=== PATIENT | female | born 1995 | race Caucasian/White ===

== ENCOUNTER 2021-03-11 23:40 | Inpatient (IN) | payer MEDICAID, SELFPAY ==
[2021-03-11 23:41] VITALS: BP 106/90; PULSE 92; RESP 16; TEMP 36.1; O2SAT 96; BMI 29.2
[2021-03-11 23:58] VITALS: BP 122/76; PULSE 76; RESP 16; O2SAT 97
[2021-03-12] VITALS (7 sets, daily range): BP systolic 103–128; BP diastolic 52–76; PULSE 55–76; RESP 16–20; TEMP 36.1–37.2; O2SAT 96–100; BMI 30.4
[2021-03-12 00:28] LABS: Absolute Lymphocyte Count 2.88 X10^3/uL (0.83-4.51); Absolute Neutrophil Count 4.9 X10^3/uL (2.0-7.7); Basophil# 0.09 X10^3/uL; Eosinophil# 0.12 X10^3/uL; Eosinophils% 1.4 % (0-5); Hematocrit 43.8 % (37-47); Hemoglobin 15.1 g/dL (12.0-15.0); Lymphocyte # 2.88 X10^3/ul (0.83-4.51); Lymphocyte % 32.9 % (19-41); Mean Corp Hgb Conc 34.5 g/dL (32-36); Mean Corpuscular Hgb 29.4 pg (27.0-32.0); Mean Corpuscular Volume 85.2 fL (81-99); Mean Platelet Vol. 9.8 fl (6.2-12.0); Monocyte# 0.74 X10^3/uL; Monocyte% 8.4 % (0-10); NRBC Flagged by Analyzer 0 % (0-5); Neutrophil # 4.91 X10^3/uL (2.7-7.7); Neutrophil % 56.1 % (47-70); Platelet Count 258 K/mm3 (150-450); RBC Distribution Width CV 12.4 % (11.6-14.6); RBC Distribution Width SD 38.6 fl (35.1-43.9); Red Blood Count 5.14 M/mm3 (4.2-5.4); White Blood Count 8.8 K/mm3 (4.4-11.0)
--- NOTE | 2021-03-12 00:32 | PCM.HP.STD ---
HPI - General General Date of Admission: 03/12/21 Date of Service: 03/12/21 HPI Narrative The patient is a 25 y/o F w/ PMHx: Chronic asthma, ADHD/Bipolar disorder/PTSD, EtOH Abuse and BZD abuse (6-12, 12 beers daily and pint whiskey/vodka daily in addition to BZD 2-12 pills daily unclear type), Polysubstance abuse (Hx IV heroin, clean x 3 years) w/ hepatitis C on chronic subutex therapy, Tobacco use who presents to the [facility] on 03/12/21 w/ noted acute impending BZD and EtOH withdrawal, onset starting prior to presentation following last EtOH intake 1 beer prior to arrival with restlessness, mild agitation, mild nausea. She notes usually will start to also have tremors. Patient interested in attaining sober status. 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 Work-up in the ED included T 96.9, heart rate 92, BP 106/90, respiratory rate 16, 96% on room air, CBC with WC 8.8, hemoglobin 15.1, platelet 258 without marked shift, CMP with potassium 3.2, chloride 108, otherwise unremarkable, serum negative, UDS with positive methamphetamine, positive benzodiazepines, positive cannabis, ethyl alcohol 42. [facility] Medical History ADHD Alcohol abuse Asthma Benzodiazepine abuse Manic bipolar I disorder PTSD (post-traumatic stress disorder) Substance abuse Tobacco use Home Medications buprenorphine HCl [Subutex] 8 mg SUBLINGUAL BID 03/11/21 [History Last Taken Unknown] dextroamphetamine-amphetamine [Adderall] 20 mg PO BID 03/11/21 [History Last Taken Unknown] lamotrigine 150 mg PO DAILY 03/11/21 [History Last Taken Unknown] medroxyprogesterone [Depo-Provera] 300 mg IM QMONTH 03/11/21 [History Last Taken Unknown] trazodone 100 mg PO QHS 03/11/21 [History Last Taken Unknown] Allergy/AdvReac Type Severity Reaction Status Date / Time No Known Allergies Allergy Verified 03/11/21 23:44 Family History (Updated 03/12/21 @ 02:[address] Charlotte Lorenzo MD) Father Heroin abuse other (Patient does not know her maternal family hx, states she gave her up at .) Surgical History (Updated 03/12/21 @ 02:[address] Charlotte Lorenzo MD) S/P tonsillectomy and adenoidectomy Social History (Updated 03/12/21 @ 02:[address] Charlotte Lorenzo MD) household members: significant other Smoking Status: Current every day smoker tobacco type: cigarettes Smoking packs per day: 1 Smoking cigarettes per day: 20.0 alcohol intake: current alcohol intake frequency: 3 or more drinks per day Alcohol type: beer and hard liquor details: 6-12 beers daily, 1 pint hard liqour daily. substance use type: former substance user Date of last use: Former heroin IV usage, on rx subutex. ROS ROS Narrative Admission Review of Systems: CONSTITUTIONAL: No weight loss, fever, chills, + weakness or fatigue. HEENT: Eyes: No visual loss, blurred vision, double vision or yellow sclerae. Ears, Nose, Throat: No hearing loss, sneezing, congestion, runny nose or sore throat. SKIN: No rash or itching, lesions, wounds. CARDIOVASCULAR: No chest pain, chest pressure or chest discomfort, palpitations, edema, orthopnea, syncopal events. RESPIRATORY: No shortness of breath, cough or sputum, wheezing, hemoptysis. GASTROINTESTINAL: No anorexia, nausea, vomiting or diarrhea, abdominal pain, melena, BRBPR. GENITOURINARY: No dysuria, frequency, urgency or retention. NEUROLOGICAL: + Restlessness, agitation. No headache, dizziness, syncope, paralysis, ataxia, numbness or tingling in the extremities, focal weakness, change in bowel or bladder control, seizure. MUSCULOSKELETAL: + muscle, back pain, joint pain or stiffness. HEMATOLOGIC: No anemia, bleeding or bruising. LYMPHATICS: No enlarged nodes. No history of splenectomy. PSYCHIATRIC: + history of depression or anxiety. ENDOCRINOLOGIC: No reports of sweating, cold or heat intolerance. No polyuria or polydipsia. ALLERGIES: + history of asthma, hives, eczema or rhinitis. Vital Signs Vital Signs Vital Signs: 03/11/21 23:41 03/11/21 23:58 Temperature 96.9 F L Temperature Source Temporal Pulse Rate 92 76 Respiratory Rate 16 16 Blood Pressure 106/90 H 122/76 H Blood Pressure Mean 95 91 Blood Pressure Source Monitor Blood Pressure Position Semi-Fowlers Blood Pressure Location Right Arm Pulse Ox 96 97 Oxygen Delivery Method Room Air Room Air Weight Weight: 170 lb Body Mass Index (BMI) 29.2 Physical Exam Narrative Physical Examination: General: Awake, alert, oriented x 3 and cooperative, seated upright in the ED bed, extremely restless, talkative, anxious. Skin: Normal color, normal turgor, no icterus, no cyanosis. HEENT: AT/NC, EOMI, PERRLA, moderately dry MM, no carotid bruits or JVD noted. Lungs: CTA bilaterally, moderate effort, mild decrease BL bases, no rales, ronchi or wheezing. Heart: Regular rate and rhythm; no gallop, rub audible. Abdomen: Soft, NTTP, ND, mildly hyperactive BS, no HSM. Extremities: No cyanosis, clubbing, or edema. Neurological: Patient awake, alert, oriented as noted, cognitive function intact; pupils equally reactive to light and accommodation, cranial nerves II-XII grossly normal, moving all 4 extremities, no focal deficits, strength preserved, restless, moving frequently. Psychiatric: Affect appears restless, anxious, no acute evidence of depressive feelings. Results Lab / Micro Data Result Diagrams: 03/12/21 00:10 03/12/21 00:10 Labs: Laboratory Results - last 24 hr 03/11/21 23:50: Ur Drug Screen Comment 03/12/21 00:10: WBC 8.8, RBC 5.14, Hgb 15.1 H, Hct 43.8, MCV 85.2, MCH 29.4, MCHC 34.5, RDW Std Deviation 38.6, RDW Coeff of Soni 12.4, Plt Count 258, MPV 9.8, Immature Gran % (Auto) 0.200, Neut % (Auto) 56.1, Lymph % (Auto) 32.9, [place] % (Auto) 8.4, Eos % (Auto) 1.4, Baso % (Auto) 1.0, Absolute Neuts (auto) 4.9, Absolute Lymphs (auto) 2.88, Nucleated RBC % 0 Assessment & Plan Assessment/Plan (1) Alcohol withdrawal: QUALIFIERS: Complication of substance-induced condition: uncomplicated Qualified Code(s): F10.230 - Alcohol dependence with withdrawal, uncomplicated (2) Benzodiazepine withdrawal: QUALIFIERS: Complication of substance-induced condition: uncomplicated Qualified Code(s): F13.230 - Sedative, hypnotic or anxiolytic dependence with withdrawal, uncomplicated PLAN: The patient is a 25 y/o F w/ PMHx: Chronic asthma, ADHD/Bipolar disorder/PTSD, EtOH Abuse and BZD abuse (6-12, 12 beers daily and pint whiskey/vodka daily in addition to BZD 2-12 pills daily unclear type), Polysubstance abuse (Hx IV heroin, clean x 3 years) on chronic subutex therapy, Tobacco use who presents to the [facility] on 03/12/21 w/ noted acute impending BZD and EtOH withdrawal. 1. Impending Acute EtOH and BZD Withdrawal: Will admit to [facility], routine labs obtained in the ED upon presentation. Given interest in sobriety/clean status, will initiate and continue on protocol with taper course of ativan given concurrent BZD abuse history, scheduled gabapentin for seizure prophylaxis, as needed Catapres, Bentyl, Vistaril, IV fluids, IV antiemetics, Tylenol as needed for pain. Will consult Case management for assistance for transition to next level of rehabilitation care. Mag, phos pending. Maintain on CIWA protocol concurrently. Patient will need consultation Saturday with Dr. Ramirez given concurrent BZD abuse as will need prolonged taper regimen. 2. ADHD/Bipolar disorder/PTSD: We will continue patient home lamotrigine, Adderall, trazodone regimen. 3. Polysubstance abuse history, Opiates w/ Hx Hepatitis C: Hx IV heroin usage, clean status, will continue patient home Subutex regimen which was confirmed rx. HIV, Hepatitis panel pending for co-infection. 4. Tobacco Abuse: Encouraged cessation, inpatient consultation per RT, NR if desired. 5. Chronic asthma: Not on routine inhalers, encourage head of bed, deep inspiratory effort, as needed albuterol if necessary. 6. DVT prophylaxis: Low risk, encourage ambulation. Charges/Coding Visit Charges Inpatient E&M: 16072 Init Hosp L3
--- NOTE | 2021-03-12 00:33 | EX.ED.SAOD ---
HPI History of Present Illness Chief Complaint: Substance Abuse Informant: patient Narrative Narrative: Patient is a 25-year-old female presenting with request for alcohol and Xanax detox. Patient states she drinks 6-12 beers a day as well as a pint of hard liquor. She states sometimes she will drink 1 beer. Last drink was about 20 minutes prior to arrival. She also notes that she uses Xanax daily. Her last 1 was this morning. She states they do get him off the street she is not sure if it is actually been Xanax or some other medication. Patient does have an active prescription for Subutex and her last dose was this morning. She has remote history of heroin addiction and states she is been clean for 3 years. Patient does not get menstrual period because she is on the Depo shot. She notes she has been feeling little sick with nausea and vomiting has been resolving. She was exposed to her father had Wiley about a week ago. She reports a history of hepatitis C but states that they think it resolved on its own. She is presenting with her boyfriend for detox as well. [facility] Medical History ADHD Alcohol abuse Asthma Benzodiazepine abuse Manic bipolar I disorder PTSD (post-traumatic stress disorder) Substance abuse Tobacco use Home Medications buprenorphine HCl [Subutex] 8 mg SUBLINGUAL BID 03/11/21 [History Last Taken Unknown] dextroamphetamine-amphetamine [Adderall] 20 mg PO BID 03/11/21 [History Last Taken Unknown] lamotrigine 150 mg PO DAILY 03/11/21 [History Last Taken Unknown] medroxyprogesterone [Depo-Provera] 300 mg IM QMONTH 03/11/21 [History Last Taken Unknown] trazodone 100 mg PO QHS 03/11/21 [History Last Taken Unknown] Allergy/AdvReac Type Severity Reaction Status Date / Time No Known Allergies Allergy Verified 03/11/21 23:44 Family History (Updated 03/12/21 @ 02:[address] Charlotte Lorenzo MD) Father Heroin abuse Surgical History (Updated 03/12/21 @ 02:[address] Charlotte Lorenzo MD) S/P tonsillectomy and adenoidectomy Social History (Updated 03/12/21 @ 02:[address] Charlotte Lorenzo MD) household members: significant other Smoking Status: Current every day smoker tobacco type: cigarettes Smoking packs per day: 1 Smoking cigarettes per day: 20.0 alcohol intake: current alcohol intake frequency: 3 or more drinks per day Alcohol type: beer and hard liquor details: 6-12 beers daily, 1 pint hard liqour daily. substance use type: former substance user Date of last use: Former heroin IV usage, on rx subutex. ROS ROS ED Constitutional Constitutional ED: Reports malaise; Denies chills or fever(s) Eyes Eyes: Denies blurry vision or loss of vision ENT ENT ED: Denies rhinorrhea or sore throat Cardiovascular Cardiovascular: Denies chest pain or dizziness Respiratory/Chest Respiratory/Chest: Denies cough or dyspnea Gastrointestinal Gastrointestinal: Reports nausea and vomiting; Denies abdominal pain Genitourinary Genitourinary ED: Denies dysuria or hematuria Musculoskeletal Musculoskeletal: Denies arthralgias or myalgias Integumentary Denies rash or wounds Neurologic Neurologic: Denies focal weakness or headache(s) Psychiatric Psychiatric: Reports other Details: Polysubstance abuse ; Denies anxiety or behavioral changes EXAM Physical Exam Const Vital Signs: 03/11/21 23:41 03/11/21 23:58 Temperature 96.9 F L Temperature Source Temporal Pulse Rate 92 76 Respiratory Rate 16 16 Blood Pressure 106/90 H 122/76 H Blood Pressure Mean 95 91 Blood Pressure Source Monitor Blood Pressure Position Semi-Fowlers Blood Pressure Location Right Arm Pulse Ox 96 97 Oxygen Delivery Method Room Air Room Air Positive well nourished, well developed and no apparent distress General Appearance ED: well developed HEENT Reports normocephalic atraumatic Nose: no nasal discharge External Ear: external ears normal Mouth ED: Yes moist mucous membranes normal Eyes PERRL and EOMs intact bilaterally Neck full ROM, supple and no meningeal signs Lymph Lymphatic: no lymphadenopathy noted Chest Wall inspection of chest normal Resp normal respiratory effort and normal air movement Cardio regular rate and regular rhythm GI normal to inspection, nondistended, normoactive bowel sounds, soft to palpation, non-tender and non-distended Extremity normal to inspection and full ROM Neuro oriented x3 and no focal motor deficits Sensorium / Orientation: alert Psych mental status grossly normal and thought process normal Skin no rashes or lesions noted and no wounds Lesions: no lesions Rashes: no rashes MDM MDM MDM Narrative Medical decision making narrative: Patient evaluated for inpatient detox for benzodiazepines and alcohol. Her drug screen is positive for methamphetamines, benzodiazepines and cannabis. In addition patient is on long-term Subutex. Patient's alcohol is only mildly elevated. Clinically she does not appear to be in acute withdrawal. Her vital signs are normal. Covid test is negative. Patient is admitted for inpatient detox. She is agreeable with this plan of care. Lab Data Attestation: I reviewed the patient's lab results. Labs: Laboratory Results - last 24 hr 03/11/21 03/12/21 03/12/21 23:50 00:10 00:10 WBC 8.8 RBC 5.14 Hgb 15.1 H Hct 43.8 MCV 85.2 MCH 29.4 MCHC 34.5 RDW Std Deviation 38.6 RDW Coeff of Soni 12.4 Plt Count 258 MPV 9.8 Immature Gran % (Auto) 0.200 Neut % (Auto) 56.1 Lymph % (Auto) 32.9 [place] % (Auto) 8.4 Eos % (Auto) 1.4 Baso % (Auto) 1.0 Absolute Neuts (auto) 4.9 Absolute Lymphs (auto) 2.88 Nucleated RBC % 0 Sodium 139 Potassium 3.2 L Chloride 108 H Carbon Dioxide 22.0 Anion Gap 9 BUN 8 Creatinine 0.88 Estim Creat Clear Calc 84.39 Est GFR (MDRD) Af Amer 101 Est GFR (MDRD) Non-Af 83 BUN/Creatinine Ratio 9.1 L Glucose 77 Calcium 8.8 Phosphorus Magnesium Total Bilirubin 0.50 AST 11 L ALT 15 Alkaline Phosphatase 72 Total Protein 7.4 Albumin 3.9 Globulin 3.5 Albumin/Globulin Ratio 1.1 Serum , Qual Urine Opiates Screen NEGATIVE Urine Methadone Screen NEGATIVE Ur Barbiturates Screen NEGATIVE Ur Phencyclidine Scrn NEGATIVE Ur Amphetamines Screen NEGATIVE U Methamphetamin-MDMA POSITIVE H U Benzodiazepines Scrn POSITIVE H Urine Cocaine Screen NEGATIVE U Cannabinoids Screen POSITIVE H Ur Drug Screen Comment Ethyl Alcohol HIV 1&2 Antibody 03/12/21 03/12/21 03/12/21 00:10 00:10 00:10 WBC RBC Hgb Hct MCV MCH MCHC RDW Std Deviation RDW Coeff of Soni Plt Count MPV Immature Gran % (Auto) Neut % (Auto) Lymph % (Auto) [place] % (Auto) Eos % (Auto) Baso % (Auto) Absolute Neuts (auto) Absolute Lymphs (auto) Nucleated RBC % Sodium Potassium Chloride Carbon Dioxide Anion Gap BUN Creatinine Estim Creat Clear Calc Est GFR (MDRD) Af Amer Est GFR (MDRD) Non-Af BUN/Creatinine Ratio Glucose Calcium Phosphorus 2.6 Magnesium 2.1 Total Bilirubin AST ALT Alkaline Phosphatase Total Protein Albumin Globulin Albumin/Globulin Ratio Serum , Qual NEGATIVE Urine Opiates Screen Urine Methadone Screen Ur Barbiturates Screen Ur Phencyclidine Scrn Ur Amphetamines Screen U Methamphetamin-MDMA U Benzodiazepines Scrn Urine Cocaine Screen U Cannabinoids Screen Ur Drug Screen Comment Ethyl Alcohol 42.0 HIV 1&2 Antibody 03/12/21 00:10 WBC RBC Hgb Hct MCV MCH MCHC RDW Std Deviation RDW Coeff of Soni Plt Count MPV Immature Gran % (Auto) Neut % (Auto) Lymph % (Auto) [place] % (Auto) Eos % (Auto) Baso % (Auto) Absolute Neuts (auto) Absolute Lymphs (auto) Nucleated RBC % Sodium Potassium Chloride Carbon Dioxide Anion Gap BUN Creatinine Estim Creat Clear Calc Est GFR (MDRD) Af Amer Est GFR (MDRD) Non-Af BUN/Creatinine Ratio Glucose Calcium Phosphorus Magnesium Total Bilirubin AST ALT Alkaline Phosphatase Total Protein Albumin Globulin Albumin/Globulin Ratio Serum , Qual Urine Opiates Screen Urine Methadone Screen Ur Barbiturates Screen Ur Phencyclidine Scrn Ur Amphetamines Screen U Methamphetamin-MDMA U Benzodiazepines Scrn Urine Cocaine Screen U Cannabinoids Screen Ur Drug Screen Comment Ethyl Alcohol HIV 1&2 Antibody Non-Reactive Discharge Plan Dx/Rx/DC Orders Clinical Impression: Alcohol withdrawal, Benzodiazepine withdrawal Disposition Disposition: Acute Care Hospital [facility] Discharge Date/Time: 03/12/21 01:51
[2021-03-12 00:49] LABS: ALB/GLOB Ratio 1.1 RATIO (0.9-2.4); AST(SGOT) 11 U/L (15-37); Alanine Aminotransfer ALT/SGPT 15 U/L (13-56); Albumin, Serum 3.9 g/dL (3.2-5.0); Alkaline Phosphatase 72 U/L (45-117); Anion Gap 9 (5-15); BUN 8 mg/dL (7-18); BUN/Creat Ratio 9.1 RATIO (10-20); Calcium,Total 8.8 mg/dL (8.5-10.1); Chloride 108 mmol/L (98-107); Creatinine, Serum 0.88 mg/dL (0.55-1.02); EST Glomerular Filtration Rate 83 mL/min (>60); Est Glom Filt Rate - Afr Amer 101 mL/min (>60); Estimated Creatinine Clearance 84.39 ml/min; Globulin 3.5 g/dL (2.2-4.2); Glucose 77 mg/dL (74-106); Potassium 3.2 mmol/L (3.5-5.1); Protein, Total 7.4 g/dL (6.4-8.2); Sodium Level 139 mmol/L (136-145)
[2021-03-12 00:52] LABS: Amphetamine Urine VISTA NEGATIVE (<1000 ng/mL); Barbiturate Urine VISTA NEGATIVE (< 200 ng/mL); Benzodiazepine Urine VISTA POSITIVE (< 200 ng/mL); Cocaine Urine VISTA NEGATIVE (< 300 ng/mL); Ecstacy Urine VISTA POSITIVE (< 500 ng/mL); Methadone Urine VISTA NEGATIVE (< 300 ng/mL); PCP Urine VISTA NEGATIVE (< 25 ng/mL); THC Urine VISTA POSITIVE (< 50 ng/mL); Vista UDS pH Range 5
[2021-03-12 00:53] LABS: Internal QC Validated? YES +Cl - CLEAR BKGD; Pregnancy, Serum, hCG Quali. NEGATIVE Negative
[2021-03-12 01:22] LABS: Magnesium 2.1 mg/dL (1.6-2.6); Phosphorus 2.6 mg/dL (2.5-4.9)
--- NOTE | 2021-03-12 01:27 | ED.RN ---
180 called and made aware of patients being admitted
[2021-03-12 01:53] LABS: HIV - WCH Non-Reactive (Nonreactive)
[2021-03-12] MEDS: Ondansetron 8 MG Tablet PO (02:50)
[2021-03-12] MEDS: LORazepam 1 MG Tablet 0.5 MG PO ×6 (02:50→21:04)
[2021-03-12] MEDS: Ibuprofen 600 MG Tablet PO (02:50)
[2021-03-12] MEDS: 0.9% Saline Lock 10 ML Syringe IV (02:51)
[2021-03-12] MEDS: traZODone 100 MG Tablet PO ×2 (02:51→21:04)
[2021-03-12] MEDS: Lactated Ringers 1,000 ML 125 ML IV (02:57)
[2021-03-12] MEDS: Thiamine Hydrochloride 100 MG Tablet PO (09:22)
[2021-03-12] MEDS: lamoTRIgine 150 MG Tablet PO (09:22)
[2021-03-12] MEDS: BUPRENORPHINE HCL 8 MG TAB.SUBL SL ×2 (09:22→21:04)
[2021-03-12] MEDS: Folic Acid 1 MG Tablet PO (09:23)
[2021-03-12] MEDS: Potassium Chloride Oral Tablet 20 MEQ 60 MEQ PO (09:29)
--- NOTE | 2021-03-12 11:11 | PN.HOSP_ITS ---
Subjective Subjective Patient seen and examined. She complained of cramps and tremors, and increased sweating. Review of systems was otherwise negative. She has remained hemodynamically stable. Objective Data Objective Data Vital Signs: Vital Signs Temp Pulse Resp BP Pulse Ox 99.0 F 60 18 112/52 L 96 03/12/21 05:29 03/12/21 05:29 03/12/21 05:29 03/12/21 05:03/12/21 07:18 Oxygen Delivery Method Room Air Weight: 177 lb 0.499 oz Body Mass Index (BMI) 30.4 Intake & Output: Intake and Output for Last 24 Hours 03/10/21 03/11/21 03/12/21 23:59 23:59 23:59 Intake Total 1360 / 1360 Balance 1360 / 1360 Lab / Micro Data Result Diagrams: 03/12/21 00:10 03/12/21 00:10 Labs: Laboratory Results - last 24 hr 03/11/21 23:50: Urine Opiates Screen NEGATIVE, Urine Methadone Screen NEGATIVE, Ur Barbiturates Screen NEGATIVE, Ur Phencyclidine Scrn NEGATIVE, Ur Amphetamines Screen NEGATIVE, U Methamphetamin-MDMA POSITIVE H, U Benzodiazepines Scrn POSITIVE H, Urine Cocaine Screen NEGATIVE, U Cannabinoids Screen POSITIVE H, Ur Drug Screen Comment 03/12/21 00:10: WBC 8.8, RBC 5.14, Hgb 15.1 H, Hct 43.8, MCV 85.2, MCH 29.4, MCHC 34.5, RDW Std Deviation 38.6, RDW Coeff of Soni 12.4, Plt Count 258, MPV 9.8, Immature Gran % (Auto) 0.200, Neut % (Auto) 56.1, Lymph % (Auto) 32.9, [place] % (Auto) 8.4, Eos % (Auto) 1.4, Baso % (Auto) 1.0, Absolute Neuts (auto) 4.9, Absolute Lymphs (auto) 2.88, Nucleated RBC % 0 03/12/21 00:10: Sodium 139, Potassium 3.2 L, Chloride 108 H, Carbon Dioxide 22.0, Anion Gap 9, BUN 8, Creatinine 0.88, Estim Creat Clear Calc 84.39, Est GFR (MDRD) Af Amer 101, Est GFR (MDRD) Non-Af 83, BUN/Creatinine Ratio 9.1 L, Gl ucose 77, Calcium 8.8, Total Bilirubin 0.50, AST 11 L, ALT 15, Alkaline Phosp hatase 72, Total Protein 7.4, Albumin 3.9, Globulin 3.5, Albumin/Globulin Ratio 1.1 03/12/21 00:10: Ethyl Alcohol 42.0 03/12/21 00:10: Serum , Qual NEGATIVE 03/12/21 00:10: Phosphorus 2.6, Magnesium 2.1 03/12/21 00:10: HIV 1&2 Antibody Non-Reactive Micro: Microbiology 03/12/21 00:18 Nasal Secretion SARS-CoV-2 Antigen (Rapid) - Final Physical Exam Const alert, oriented x3 and no apparent distress Exam Limitations: no limitations HEENT head/scalp atraumatic, moist oral mucous membranes and oropharynx normal Head and Scalp: normocephalic Eyes PERRL, EOMs intact bilaterally and conjunctivae normal Neck no lymphadenopathy Resp normal respiratory effort, no retractions, no use of accessory muscles and clear to auscultation bilaterally Cardio regular rate, regular rhythm, S1 normal heart sound, S2 normal heart sound and no murmurs GI normal to inspection, nondistended, normoactive bowel sounds, soft to palpation, non-tender and non-distended Extremity normal to inspection, full ROM and no clubbing, cyanosis or edema Peripheral Pulses: Yes pulses 2+ throughout Skin no rashes or lesions noted Neuro oriented x3, CN's II-XII intact bilaterally and moves all extremities Sensorium / Orientation: awake and alert Psych affect normal Assessment & Plan Assessment/Plan (1) Benzodiazepine withdrawal: QUALIFIERS: Complication of substance-induced condition: uncomplicated Qualified Code(s): F13.230 - Sedative, hypnotic or anxiolytic dependence with withdrawal, uncomplicated (2) Alcohol withdrawal: QUALIFIERS: Complication of substance-induced condition: uncomplicated Qualified Code(s): F10.230 - Alcohol dependence with withdrawal, uncomplicated PLAN: #Acute alcohol and benzodiazepine withdrawal * on alcohol withdrawal protocol with phenobarbital * on adjunctive meds for symptomatic relief * monitor CIWA score * to consult Dr Ramirez on Saturday as she will need prolonged taper for benzodiazepine usage once discharged. * #History of polysubstance abuse * on subutex. * HIV and hepatitis panel ordered pending * #Nicotine dependence: counseled to quit. Nicotine patch 21mg daily #ADHD and bipolar disorder: on adderall, trazodone and lamotrigine #Chronic asthma; not in exacerbation. on breathing treatment with bronchodilators DVT prophylaxis: low risk, encourage ambulation Charges/Coding Visit Charges Inpatient E&M: 99806 Subs Hosp L2
[2021-03-13] VITALS (10 sets, daily range): BP systolic 97–125; BP diastolic 51–73; PULSE 54–76; RESP 16–20; TEMP 36.2–36.9; O2SAT 96–100
[2021-03-13] MEDS: LORazepam 1 MG Tablet 0.5 MG PO ×6 (01:25→22:12)
[2021-03-13] MEDS: Ibuprofen 600 MG Tablet PO (01:25)
[2021-03-13] MEDS: Ondansetron 8 MG Tablet PO (01:26)
[2021-03-13] MEDS: BUPRENORPHINE HCL 8 MG TAB.SUBL SL ×2 (09:58→22:12)
[2021-03-13] MEDS: Folic Acid 1 MG Tablet PO (09:59)
[2021-03-13] MEDS: Thiamine Hydrochloride 100 MG Tablet PO (09:59)
[2021-03-13] MEDS: Acetaminophen 325 MG Tablet 650 MG PO ×3 (10:09→22:11)
--- NOTE | 2021-03-13 10:09 | NURSING ---
Dr Ramirez does not see patients in the hospital. Would be glad to do telephone consult. Hospitalist informed.
[2021-03-13] MEDS: hydrOXYzine PAM 25 MG Capsule 50 MG PO ×4 (10:13→22:11)
--- NOTE | 2021-03-13 11:16 | PN.HOSP_ITS ---
Subjective Subjective Patient seen and examined. SHe had no complaints and had an uneventful night. She denied any lightheadedness, dizziness, palpitations, nausea or vomiting, abdominal cramps or restless legs. Review of systems otherwise negative. Objective Data Objective Data Vital Signs: Vital Signs Temp Pulse Resp BP Pulse Ox 98.3 F 70 16 125/64 H 99 03/13/21 10:00 03/13/21 10:00 03/13/21 10:00 03/13/21 10:00 03/13/21 10:00 Oxygen Delivery Method Room Air Weight: 177 lb 0.499 oz Body Mass Index (BMI) 30.4 Intake & Output: Intake and Output for Last 24 Hours 03/11/21 03/12/21 03/13/21 23:59 23:59 23:59 Intake Total 1360 / 1360 Balance 1360 / 1360 Lab / Micro Data Result Diagrams: 03/12/21 00:10 03/12/21 00:10 Micro: Microbiology 03/12/21 00:18 Nasal Secretion SARS-CoV-2 Antigen (Rapid) - Final Physical Exam Const alert, oriented x3 and no apparent distress Exam Limitations: no limitations HEENT head/scalp atraumatic, moist oral mucous membranes and oropharynx normal Head and Scalp: normocephalic Eyes PERRL, EOMs intact bilaterally and conjunctivae normal Neck no lymphadenopathy Resp normal respiratory effort, no retractions, no use of accessory muscles and clear to auscultation bilaterally Cardio regular rate, regular rhythm, S1 normal heart sound, S2 normal heart sound and no murmurs GI normal to inspection, nondistended, normoactive bowel sounds, soft to palpation, non-tender and non-distended Extremity normal to inspection, full ROM and no clubbing, cyanosis or edema Peripheral Pulses: Yes pulses 2+ throughout Skin no rashes or lesions noted Neuro oriented x3, CN's II-XII intact bilaterally and moves all extremities Sensorium / Orientation: awake and alert Psych affect normal Assessment & Plan Assessment/Plan (1) Benzodiazepine withdrawal: QUALIFIERS: Complication of substance-induced condition: uncomplicated Qualified Code(s): F13.230 - Sedative, hypnotic or anxiolytic dependence with withdrawal, uncomplicated (2) Alcohol withdrawal: QUALIFIERS: Complication of substance-induced condition: uncomplicated Qualified Code(s): F10.230 - Alcohol dependence with withdrawal, uncomplicated PLAN: #Acute alcohol and benzodiazepine withdrawal * on alcohol withdrawal protocol with phenobarbital * on adjunctive meds for symptomatic relief * monitor CIWA score * will discuss benzodiazepine taper on discharge with Dr Ramirez * #History of polysubstance abuse * on subutex. * HIV antibody nonreactive. Hepatitis panel ordered pending * #Nicotine dependence: counseled to quit. Nicotine patch 21mg daily #ADHD and bipolar disorder: on adderall, trazodone and lamotrigine #Chronic asthma; not in exacerbation. on breathing treatment with bronchodilators DVT prophylaxis: low risk, encourage ambulation Charges/Coding Visit Charges Inpatient E&M: 77800 Subs Hosp L2
--- NOTE | 2021-03-13 14:29 | NURSING ---
report given to Yoandy Noonan RN for transfer to [facility]
[2021-03-13] MEDS: Dicyclomine 10 MG Capsule 20 MG PO (17:56)
[2021-03-13] MEDS: traZODone 100 MG Tablet PO (22:12)
[2021-03-14] MEDS: LORazepam 1 MG Tablet 0.5 MG PO ×5 (01:56→21:36)
[2021-03-14] MEDS: hydrOXYzine PAM 25 MG Capsule 50 MG PO ×4 (01:56→14:45)
[2021-03-14 04:02] VITALS: BP 96/58; PULSE 59; RESP 16; TEMP 37.3; O2SAT 98
[2021-03-14 04:06] VITALS: BP 96/58; PULSE 59; RESP 16; TEMP 37.3; O2SAT 98
[2021-03-14 07:40] VITALS: O2SAT 98
[2021-03-14] MEDS: Thiamine Hydrochloride 100 MG Tablet PO (09:56)
[2021-03-14] MEDS: Folic Acid 1 MG Tablet PO (09:56)
[2021-03-14 10:00] VITALS: BP 132/76; PULSE 89; RESP 18; TEMP 36.9; O2SAT 98
--- NOTE | 2021-03-14 10:03 | NURSING ---
Patient asking for her subutex dose. Notified pharmacy both med rooms are out. Informed patient i will bring it in when it gets to the floor.
--- NOTE | 2021-03-14 10:36 | NURSING ---
called Pharmacist Denise, requesting subutex, out of stock in both medrooms.
--- NOTE | 2021-03-14 10:37 | NURSING ---
Patient upset because subutex not on the floor. Charge nurse aware going to call RX again.
[2021-03-14] MEDS: BUPRENORPHINE HCL 8 MG TAB.SUBL SL ×2 (10:58→21:37)
--- NOTE | 2021-03-14 11:08 | ADDICTION ---
TW met with pt for 1.75 hours to complete ASAM, AUDIT, DUDIT, MSE, and Discharge Plan. Pt was cooperative and shared most of her previous history with this clinician. Pt exhibited tangential speech, often jumping from topic to topic. Pt was tearful, appropriate to situation. This clinician offered grounding techniques, CBT related coping skills, and encouraged her self-worth. Pt reported she struggles with med compliance with her manic bipolar. She reported she has f/u appointments already set up with both her PCP and a counselor at [facility]. Pt was unable to remember times, stating they were in her phone and she knew they were upcoming. Pt declined any further appts at this time. Clinician stated she would check back in with her tomorrow if she was still here. No transportation needs noted.
--- NOTE | 2021-03-14 12:36 | PCM.PN.HOSP ---
Subjective Subjective Having more withdrawal symptoms today, has difficulty sleeping. Objective Data Objective Data Vital Signs: Vital Signs Temp Pulse Resp BP Pulse Ox 98.5 F 89 18 132/76 H 98 03/14/21 10:00 03/14/21 10:00 03/14/21 10:00 03/14/21 10:00 03/14/21 10:00 Oxygen Delivery Method Room Air Weight: 177 lb 0.499 oz Body Mass Index (BMI) 30.4 Intake & Output: Intake and Output for Last 24 Hours 03/13/21 03/14/21 03/15/21 03:59 03:59 03:59 Intake Total 1360 / 1360 Balance 1360 / 1360 Lab / Micro Data Result Diagrams: 03/12/21 00:10 03/12/21 00:10 Micro: Microbiology 03/12/21 00:18 Nasal Secretion SARS-CoV-2 Antigen (Rapid) - Final Physical Exam Const alert, oriented x3 and no apparent distress General Appearance: cooperative HEENT normocephalic and moist oral mucous membranes Eyes PERRL, EOMs intact bilaterally and conjunctivae normal Neck supple and no JVD Resp normal respiratory effort, no retractions, no use of accessory muscles and clear to auscultation bilaterally Auscultation: Negative for crackles, rales, rhonchi or wheezes Cardio regular rate, regular rhythm, S1 normal heart sound, S2 normal heart sound and no murmurs GI soft to palpation, non-tender and non-distended; Negative for hepatosplenomegaly Extremity no clubbing, cyanosis or edema Skin no rashes or lesions noted Neuro no focal motor deficits and no sensory deficits noted Psych affect normal Appearance: appropriate Assessment & Plan Assessment/Plan (1) Benzodiazepine withdrawal: QUALIFIERS: Complication of substance-induced condition: uncomplicated Qualified Code(s): F13.230 - Sedative, hypnotic or anxiolytic dependence with withdrawal, uncomplicated (2) Alcohol withdrawal: QUALIFIERS: Complication of substance-induced condition: uncomplicated Qualified Code(s): F10.230 - Alcohol dependence with withdrawal, uncomplicated PLAN: 1. Acute alcohol and benzo withdrawal/polysubstance abuse/nicotine abuse -180 will take responsibility of the benzo taper on discharge -Continue with the alcohol withdrawal protocol -Continue with her Subutex -Hepatitis panel is pending, HIV was negative -Continue nicotine patch, discussed cessation 2. ADHD and bipolar disorder -Continue with her home medications 3. Chronic asthma -Continue with bronchodilators, not in exacerbation DVT: Ambulation Charges/Coding Visit Charges Inpatient E&M: 84952 Subs Hosp L2
[2021-03-14] MEDS: Gabapentin 300 MG Capsule PO (14:45)
[2021-03-14] MEDS: Senna Tablet 2 TABLET PO (14:46)
[2021-03-14 15:51] VITALS: BP 112/62; PULSE 70; RESP 18; TEMP 36.7; O2SAT 97
--- NOTE | 2021-03-14 19:37 | NURSING ---
Called pharmacy for more 8 mg subutex doses.
[2021-03-14 21:15] VITALS: BP 112/62; PULSE 68; PULSE 71; RESP 20; TEMP 36.9; O2SAT 100
[2021-03-14] MEDS: traZODone 100 MG Tablet PO (21:37)
[2021-03-15 02:47] VITALS: BP 120/73; PULSE 99; RESP 16; TEMP 37.3; O2SAT 96
[2021-03-15] MEDS: hydrOXYzine PAM 25 MG Capsule 50 MG PO ×2 (03:04→08:52)
[2021-03-15] MEDS: Gabapentin 300 MG Capsule PO (03:04)
[2021-03-15] MEDS: Acetaminophen 325 MG Tablet 650 MG PO (03:04)
[2021-03-15] MEDS: LORazepam 1 MG Tablet 0.5 MG PO ×2 (04:01→10:22)
[2021-03-15 08:00] VITALS: BP 125/90; PULSE 99; RESP 16; TEMP 36.8; O2SAT 96
[2021-03-15 08:17] VITALS: O2SAT 95
[2021-03-15] MEDS: Thiamine Hydrochloride 100 MG Tablet PO (08:40)
[2021-03-15] MEDS: Folic Acid 1 MG Tablet PO (08:41)
[2021-03-15 08:45] VITALS: BP 125/90; PULSE 99; RESP 16; TEMP 36.8; O2SAT 96
[2021-03-15] MEDS: BUPRENORPHINE HCL 8 MG TAB.SUBL SL (10:23)
--- NOTE | 2021-03-15 10:30 | PCM.DC ---
Discharge Instructions Diet Discharge Diet: No restrictions Activity Discharge Activity: Return to Normal Activity Dressing / Incision Call your doctor if you observe: Fever of 101 or Higher, Shortness of breath, Dizziness, Swelling in the ankles, Chest pain and Increased palpitations (irregular heartbeat) Follow Up Care Test Results: Test results from this visit will be discussed in further detail at your follow-up appointment, if applicable. Discharge Plan Admission Admit Date/Time: 03/12/21 00:46 Attending Provider: Seven Thompson Primary Care Provider: Care Physician,No Primary Consulting Providers: Ninoska Ramirez Discharge Orders/Prescriptions Prescriptions: Continued lamotrigine 150 mg Tablet 150 mg PO DAILY RF: 0 trazodone 100 mg Tablet 100 mg PO QHS RF: 0 dextroamphetamine-amphetamine [Adderall] 20 mg Tablet 20 mg PO BID RF: 0 medroxyprogesterone [Depo-Provera] 150 mg/mL Suspension 300 mg IM QMONTH RF: 0 buprenorphine HCl 8 mg Tablet, Sublingual 8 mg SUBLINGUAL BID RF: 0 Referrals / Follow Up: Care Physician,No Primary [Primary Care Provider] - Disposition Disposition (needs filled in before D/C Order can be placed): Home, Self Care
[2021-03-15 10:31] VITALS: BP 125/90; PULSE 99; RESP 16; TEMP 36.8; O2SAT 96
--- NOTE | 2021-03-15 10:41 | ADDICTION ---
TW met with pt to complete KAYLENE for PCP. TW called PCP to schedule appointment for PT. PT has ability to do walk in appointment today or have scheduled appointment on 03/17/21 at 3:45PM. She has an appointment with jonathan Haines at [facility] ([address] [place] [address]) on 04/06/21 at 3:45PM. No transportation needs necessary.
--- NOTE | 2021-03-15 11:26 | PHA.DC.MR ---
Pharmacy Service has performed discharge medication reconciliation for this patient. The patient's discharge medication list was reviewed for discrepancies and discrepancies were resolved. Home Medications buprenorphine HCl 8 mg SUBLINGUAL BID 03/11/21 dextroamphetamine-amphetamine [Adderall] 20 mg PO BID 03/11/21 lamotrigine 150 mg PO DAILY 03/11/21 medroxyprogesterone [Depo-Provera] 300 mg IM QMONTH 03/11/21 trazodone 100 mg PO QHS 03/11/21
--- NOTE | 2021-03-15 13:33 | PCM.DC.SUM ---
Providers Date of Admission: 03/12/21 Primary Care Physician: Carolyn Primary Care Phys Consultations 03/13/21 07:42 Consult: Addiction Medicine Routine Consulting Provider: Ninoska Ramirez Reason for Consult: benzodiazepine withdrawal, needs long taper EMERGENT Consult: No Notified: Yes Date Notified: 03/13/21 Time Notified: 10:08 Method of Notification: telephone Reason for Consult: benzodiazepine withdrawal, needs long taper EMERGENT Consult: No Notified: Yes Date Notified: 03/13/21 Time Notified: 10:08 Method of Notification: telephone Reason For Visit: ACUTE ETOH / BZD WITHDRAWAL Diagnosis Discharge Diagnosis (1) Benzodiazepine withdrawal: Status: Acute Code(s): F13.239 - Sedative, hypnotic or anxiolytic dependence with withdrawal, unspecified Qualifiers: Complication of substance-induced condition: uncomplicated Qualified Code(s): F13.230 - Sedative, hypnotic or anxiolytic dependence with withdrawal, uncomplicated (2) Alcohol withdrawal: Status: Acute Code(s): F10.239 - Alcohol dependence with withdrawal, unspecified Qualifiers: Complication of substance-induced condition: uncomplicated Qualified Code(s): F10.230 - Alcohol dependence with withdrawal, uncomplicated Medications at Discharge Home Medications buprenorphine HCl 8 mg SUBLINGUAL BID 03/11/21 dextroamphetamine-amphetamine [Adderall] 20 mg PO BID 03/11/21 lamotrigine 150 mg PO DAILY 03/11/21 medroxyprogesterone [Depo-Provera] 300 mg IM QMONTH 03/11/21 trazodone 100 mg PO QHS 03/11/21 Hospital Course Operations None Procedures None Summary of Care Provided Minutes Spent on Discharge: 35 Hospital Course: Per HPI: The patient is a 25 y/o F w/ PMHx: Chronic asthma, ADHD/Bipolar disorder/PTSD, EtOH Abuse and BZD abuse (6-12, 12 beers daily and pint whiskey/vodka daily in addition to BZD 2-12 pills daily unclear type), Polysubstance abuse (Hx IV heroin, clean x 3 years) w/ hepatitis C on chronic subutex therapy, Tobacco use who presents to the [facility] on 03/12/21 w/ noted acute impending BZD and EtOH withdrawal, onset starting prior to presentation following last EtOH intake 1 beer prior to arrival with restlessness, mild agitation, mild nausea. She notes usually will start to also have tremors. Patient interested in attaining sober status. 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 Work-up in the ED included T 96.9, heart rate 92, BP 106/90, respiratory rate 16, 96% on room air, CBC with WC 8.8, hemoglobin 15.1, platelet 258 without marked shift, CMP with potassium 3.2, chloride 108, otherwise unremarkable, serum negative, UDS with positive methamphetamine, positive benzodiazepines, positive cannabis, ethyl alcohol 42. Hospital Course: 1. Acute alcohol and benzo withdrawal/polysubstance abuse/nicotine [id number] female who drinks fairly heavily and also uses benzodiazepines which are not prescribed for her present to the hospital requesting detox. She is also currently on Subutex but does not want to detox from any opiates at this time. She went through 3 days of Ativan taper however today she want to be discharged because her boyfriend is being discharged. In discussion with 180 they were able to set up a discharge plan where a physician in [place] would manage her benzodiazepine taper. She is feeling a little bit better today though she still states that she is not sleeping very well. I discussed with her the ability to stay 1 more day but she elected to discharge home today. I did discuss with her the risks of discharge and she expressed understanding of the risks and would still like to proceed with discharge. I did instruct her that she needs to follow-up with a physician to manage her benzodiazepine taper and she expressed understanding as well. 2. ADHD, bipolar disorder, chronic asthma are all chronic medical conditions which complicate her care. Her home medications were continued where appropriate Physical Exam Const alert, oriented x3 and no apparent distress HEENT normocephalic and moist oral mucous membranes Eyes PERRL, EOMs intact bilaterally and conjunctivae normal Neck no lymphadenopathy, supple and no JVD Resp normal respiratory effort, no retractions, no use of accessory muscles and clear to auscultation bilaterally Auscultation: Negative for crackles, rales, rhonchi or wheezes Cardio regular rate, regular rhythm, S1 normal heart sound, S2 normal heart sound and no murmurs GI soft to palpation, non-tender and non-distended; Negative for hepatosplenomegaly Extremity no clubbing, cyanosis or edema Skin no rashes or lesions noted Neuro no focal motor deficits and no sensory deficits noted Psych affect normal Appearance: appropriate Weight / BMI Weight Weight: 177 lb 0.499 oz Body Mass Index (BMI) 30.4 ABG / Lab / Microbiology Data Result Diagrams: 03/12/21 00:10 03/12/21 00:10 Microbiology: Microbiology 03/12/21 00:18 Nasal Secretion SARS-CoV-2 Antigen (Rapid) - Final D/C Instructions Discharge Diet: No restrictions Call your doctor if you observe: Fever of 101 or Higher, Shortness of breath, Dizziness, Swelling in the ankles, Chest pain and Increased palpitations (irregular heartbeat) Meaningful Use Info Meaningful Use Diagnoses (Choose all that apply): None applicable Discharge Plan Admission Admit Date/Time: 03/12/21 00:46 Attending Provider: Seven Thompson Primary Care Provider: Care Physician,No Primary Consulting Providers: Ninoska Ramirez Discharge Orders/Prescriptions Prescriptions: Continued lamotrigine 150 mg Tablet 150 mg PO DAILY RF: 0 trazodone 100 mg Tablet 100 mg PO QHS RF: 0 dextroamphetamine-amphetamine [Adderall] 20 mg Tablet 20 mg PO BID RF: 0 medroxyprogesterone [Depo-Provera] 150 mg/mL Suspension 300 mg IM QMONTH RF: 0 buprenorphine HCl 8 mg Tablet, Sublingual 8 mg SUBLINGUAL BID RF: 0 Referrals / Follow Up: Care Physician,No Primary [Primary Care Provider] - Disposition Disposition (needs filled in before D/C Order can be placed): Home, Self Care Charges/Coding Visit Charges Inpatient E&M: 19233 Disch Hosp
== END 2021-03-15 11:24 | disposition home or self-care (01) | DRG 775 ==
LOC: ED 03-12 00:12 → PCU 03-12 01:40 → MS3 03-13 14:43
PROVIDERS: Admitting Provider Family Medicine; Emergency Provider Emergency Medicine; Visit Provider Family Medicine
DX: F10.230 Alcohol dependence with withdrawal, uncomplicated (principal); F13.239 Sedative, hypnotic or anxiolytic dependence with withdrawal, unspecified; F90.9 Attention-deficit hyperactivity disorder, unspecified type; J45.909 Unspecified asthma, uncomplicated; F31.9 Bipolar disorder, unspecified; F43.10 Post-traumatic stress disorder, unspecified; F17.210 Nicotine dependence, cigarettes, uncomplicated; Y90.2 Blood alcohol level of 40-59 mg/100 ml
CPT/HCPCS: 80053; 80307; 82077; 83735; 84100; 84703; 85025; 86703; 86704; 86705; 86706; 86707; 86803; 87340; 87350; 87426; 99283; 99406; J7120; A4216

== ENCOUNTER 2022-06-04 12:06 | Inpatient (IN) | payer MEDICAID, SELFPAY ==
[2022-06-04 12:07] VITALS: BP 143/84; PULSE 98; RESP 18; TEMP 36.6; O2SAT 98; BMI 25.3
[2022-06-04 14:50] LABS: Amphetamine Urine VISTA NEGATIVE (<1000 ng/mL); Barbiturate Urine VISTA POSITIVE (< 200 ng/mL); Benzodiazepine Urine VISTA NEGATIVE (< 200 ng/mL); Cocaine Urine VISTA NEGATIVE (< 300 ng/mL); Ecstacy Urine VISTA POSITIVE (< 500 ng/mL); Methadone Urine VISTA NEGATIVE (< 300 ng/mL); PCP Urine VISTA NEGATIVE (< 25 ng/mL); THC Urine VISTA NEGATIVE (< 50 ng/mL); Vista UDS pH Range 6
--- NOTE | 2022-06-04 18:17 | EX.ED.SAOD ---
HPI <MARISEL Jones - Last Filed: 06/04/22 21:27> History of Present Illness Chief Complaint: Substance Abuse Narrative Narrative: Patient presents today for detox from fentanyl and alcohol use. Patient injects fentanyl daily and last used it this morning around 6 AM. Patient has been using fentanyl for the last 8 months. Patient has been using alcohol on and off for several years and has been drinking daily for the past several months. Patient drinks 3 beers and half of 1/5 of whiskey daily. She last drank a tall boy of beer on her way here today. Patient states she has had a withdrawal seizure from alcohol in the past. She denies current nausea, vomiting, chest pain, and difficulty breathing. Patient denies suicidal and homicidal ideation. Urine toxicology is positive for barbiturates and ecstasy. Patient states she last detoxed 02/2021. PFSH <MARISEL Jones - Last Filed: 06/04/22 21:27> COUNT INCLUDES THE [facility] Medical History ADHD Alcohol abuse Asthma Benzodiazepine abuse Manic bipolar I disorder PTSD (post-traumatic stress disorder) Substance abuse Tobacco use Home Medications lamotrigine 150 mg tablet 50 mg PO DAILY bipolar 03/11/21 [History Last Taken Unknown] medroxyprogesterone 150 mg/mL intramuscular suspension (Depo-Provera) 300 mg IM QMONTH control 03/11/21 [History Last Taken 04/05/22] trazodone 100 mg tablet 100 mg PO QHS sleep 03/11/21 [History Last Taken 06/02/22] docusate sodium 100 mg capsule (Colace) 200 mg PO DAILY stool softener 06/04/22 [History Last Taken 06/03/22] Allergy/AdvReac Type Severity Reaction Status Date / Time No Known Allergies Allergy Verified 03/11/21 23:44 Family History Father Heroin abuse Surgical History S/P tonsillectomy and adenoidectomy Social History household members: significant other Smoking Status: Current every day smoker tobacco type: cigarettes alcohol intake: current alcohol intake frequency: 3 or more drinks per day Alcohol type: beer and hard liquor details: 6-12 beers daily, 1 pint hard liqour daily. substance use type: former substance user Date of last use: Former heroin IV usage, on rx subutex. ROS <MARISEL Jones - Last Filed: 06/04/22 21:27> ROS ED Constitutional Constitutional ED: Denies chills or fever(s) Eyes Eyes: Denies blurry vision or change in vision ENT ENT ED: Denies rhinorrhea or sore throat Cardiovascular Cardiovascular: Denies chest pain or palpitations Respiratory/Chest Respiratory/Chest: Denies cough or dyspnea Gastrointestinal Gastrointestinal: Denies abdominal pain, diarrhea, nausea or vomiting Musculoskeletal Musculoskeletal: Denies myalgias Integumentary Denies abscess, Abrasions or rash Neurologic Neurologic: Denies headache(s), paresthesias or weakness Psychiatric Psychiatric: Reports anxiety EXAM <MARISEL Jones - Last Filed: 06/04/22 21:27> Physical Exam Const Vital Signs: 06/04/22 12:07 06/04/22 18:19 06/04/22 18:19 Temperature 98 F Temperature Source Temporal Pulse Rate 98 85 80 Respiratory Rate 18 17 17 Blood Pressure 143/84 H 130/62 H 130/62 H Blood Pressure Mean 103 84 84 Blood Pressure Source Monitor Blood Pressure Position Semi-Fowlers Blood Pressure Location Left Arm Pulse Ox 98 100 100 Oxygen Delivery Method Room Air Room Air Room Air Positive well nourished HEENT Reports moist mucous membranes atraumatic; Negative for tenderness Eyes PERRL and EOMs intact bilaterally Neck supple Resp normal respiratory effort and clear to auscultation bilaterally Cardio regular rate, regular rhythm and no murmurs GI soft to palpation, non-tender, non-distended and no masses Extremity Extremity Narrative: Some bruising and tract saucedo noted in the left antecubital fossa. Neuro oriented x3 and no sensory deficits noted Sensorium / Orientation: alert Speech: speech normal Gait (Neuro): normal gait Motor Exam: strength 5/5 throughout Psych mental status grossly normal and thought process normal Skin General Skin Exam: Negative for jaundice Rashes: no rashes <Clive Hamilton MD - Last Filed: 06/04/22 22:57> Physical Exam Const Vital Signs: 06/04/22 12:07 06/04/22 18:19 06/04/22 18:19 Temperature 98 F Temperature Source Temporal Pulse Rate 98 85 80 Respiratory Rate 18 17 17 Blood Pressure 143/84 H 130/62 H 130/62 H Blood Pressure Mean 103 84 84 Blood Pressure Source Monitor Blood Pressure Position Semi-Fowlers Blood Pressure Location Left Arm Pulse Ox 98 100 100 Oxygen Delivery Method Room Air Room Air Room Air MDM <MARISEL Jones - Last Filed: 06/04/22 21:27> [facility] MDM Narrative Medical decision making narrative: Patient is well-appearing and in no acute distress. She appears clinically sober. Patient's urine toxicology positive for barbiturates and ecstasy. Patient will be admitted for detox. Lab Data Attestation: I reviewed the patient's lab results. Labs: Laboratory Results - last 24 hr 06/04/22 06/04/22 06/04/22 12:20 18:16 18:16 WBC 8.4 RBC 5.05 Hgb 14.9 Hct 44.9 MCV 88.9 MCH 29.5 MCHC 33.2 RDW Std Deviation 38.8 RDW Coeff of Soni 12.1 Plt Count 292 MPV 9.5 Immature Gran % (Auto) 0.200 Neut % (Auto) 69.7 Lymph % (Auto) 21.1 Faulkner % (Auto) 6.9 Eos % (Auto) 1.3 Baso % (Auto) 0.8 Absolute Neuts (auto) 5.8 Absolute Lymphs (auto) 1.77 Nucleated RBC % 0 Sodium 138 Potassium 3.8 Chloride 103 Carbon Dioxide 30.0 Anion Gap 5 BUN 10 Creatinine 0.83 Estim Creat Clear Calc 88.70 Est GFR (MDRD) Af Amer 107 Est GFR (MDRD) Non-Af 88 BUN/Creatinine Ratio 12.1 Glucose 74 Calcium 9.1 Serum , Qual Urine Opiates Screen NEGATIVE Urine Methadone Screen NEGATIVE Ur Barbiturates Screen POSITIVE H Ur Phencyclidine Scrn NEGATIVE Ur Amphetamines Screen NEGATIVE MDMA (Ecstasy) Screen POSITIVE H U Benzodiazepines Scrn NEGATIVE Urine Cocaine Screen NEGATIVE U Cannabinoids Screen NEGATIVE Ur Drug Screen Comment Ethyl Alcohol 06/04/22 06/04/22 18:16 18:16 WBC RBC Hgb Hct MCV MCH MCHC RDW Std Deviation RDW Coeff of Soni Plt Count MPV Immature Gran % (Auto) Neut % (Auto) Lymph % (Auto) Faulkner % (Auto) Eos % (Auto) Baso % (Auto) Absolute Neuts (auto) Absolute Lymphs (auto) Nucleated RBC % Sodium Potassium Chloride Carbon Dioxide Anion Gap BUN Creatinine Estim Creat Clear Calc Est GFR (MDRD) Af Amer Est GFR (MDRD) Non-Af BUN/Creatinine Ratio Glucose Calcium Serum , Qual NEGATIVE Urine Opiates Screen Urine Methadone Screen Ur Barbiturates Screen Ur Phencyclidine Scrn Ur Amphetamines Screen MDMA (Ecstasy) Screen U Benzodiazepines Scrn Urine Cocaine Screen U Cannabinoids Screen Ur Drug Screen Comment Ethyl Alcohol < 3.0 <Clive Hamilton MD - Last Filed: 06/04/22 22:57> MDM MDM Narrative Medical decision making narrative: Patient is well-appearing and in no acute distress. She appears clinically sober. Patient's urine toxicology positive for barbiturates and ecstasy. Patient will be admitted for detox. She is in stable condition. I have personally performed a face to face assessment of the patient and have reviewed the ILYA Note. I performed a substantive portion of the visit including all aspects of the following. My jasmine findings include: History is detox from alcohol and fentanyl. Last detox/rehab earlier this year, over 6 months ago Exam is afebrile. Vital signs noted. Regular rate and rhythm, lungs clear to auscultation bilaterally. Abdomen soft and nontender with normoactive bowel sounds. Medical Decision Making check labs. Discussed with hospitalist. Admit for detox. Other additions or changes: [None] Lab Data Labs: Laboratory Results - last 24 hr 06/04/22 06/04/22 06/04/22 12:20 18:16 18:16 WBC 8.4 RBC 5.05 Hgb 14.9 Hct 44.9 MCV 88.9 MCH 29.5 MCHC 33.2 RDW Std Deviation 38.8 RDW Coeff of Soni 12.1 Plt Count 292 MPV 9.5 Immature Gran % (Auto) 0.200 Neut % (Auto) 69.7 Lymph % (Auto) 21.1 Faulkner % (Auto) 6.9 Eos % (Auto) 1.3 Baso % (Auto) 0.8 Absolute Neuts (auto) 5.8 Absolute Lymphs (auto) 1.77 Nucleated RBC % 0 Sodium 138 Potassium 3.8 Chloride 103 Carbon Dioxide 30.0 Anion Gap 5 BUN 10 Creatinine 0.83 Estim Creat Clear Calc 88.70 Est GFR (MDRD) Af Amer 107 Est GFR (MDRD) Non-Af 88 BUN/Creatinine Ratio 12.1 Glucose 74 Calcium 9.1 Serum , Qual Urine Opiates Screen NEGATIVE Urine Methadone Screen NEGATIVE Ur Barbiturates Screen POSITIVE H Ur Phencyclidine Scrn NEGATIVE Ur Amphetamines Screen NEGATIVE MDMA (Ecstasy) Screen POSITIVE H U Benzodiazepines Scrn NEGATIVE Urine Cocaine Screen NEGATIVE U Cannabinoids Screen NEGATIVE Ur Drug Screen Comment Ethyl Alcohol 06/04/22 06/04/22 18:16 18:16 WBC RBC Hgb Hct MCV MCH MCHC RDW Std Deviation RDW Coeff of Soni Plt Count MPV Immature Gran % (Auto) Neut % (Auto) Lymph % (Auto) Faulkner % (Auto) Eos % (Auto) Baso % (Auto) Absolute Neuts (auto) Absolute Lymphs (auto) Nucleated RBC % Sodium Potassium Chloride Carbon Dioxide Anion Gap BUN Creatinine Estim Creat Clear Calc Est GFR (MDRD) Af Amer Est GFR (MDRD) Non-Af BUN/Creatinine Ratio Glucose Calcium Serum , Qual NEGATIVE Urine Opiates Screen Urine Methadone Screen Ur Barbiturates Screen Ur Phencyclidine Scrn Ur Amphetamines Screen MDMA (Ecstasy) Screen U Benzodiazepines Scrn Urine Cocaine Screen U Cannabinoids Screen Ur Drug Screen Comment Ethyl Alcohol < 3.0 Discharge Plan Dx/Rx/DC Orders Clinical Impression: Opiate abuse, continuous, Alcohol abuse Disposition Disposition: Acute Care Hospital [facility] Discharge Date/Time: 06/04/22 20:50
[2022-06-04 18:19] VITALS: BP 130/62; PULSE 80; PULSE 85; RESP 17; O2SAT 100
--- NOTE | 2022-06-04 18:30 | CM.ED ---
NAEL Note Referral Source: [facility] Referral Reason: IGOR NAYAK and NAEL Callaway met with patient. Patient came to the ED for detox. Patient previously in [facility] program and familiar with the rules of the program which include no outside food, no outside visitors, no phones and belongings are secured and locked. Patient reports that she is detoxing from alcohol and fentanyl. Patient reports using 1 gram of fentanyl a day. Patient said that between her and her they drink a 12 pack and 1/5 a day or sometimes more. Patient was asked if she is legally and she said no. Patient is linked with [facility] for outpatient AOD treatment. NAEL called Akbar, treatment navigator and updated her regarding patient's presentation to the ED for detox. Plan: IGOR PEREIRA
[2022-06-04 18:40] LABS: Absolute Lymphocyte Count 1.77 X10^3/uL (0.83-4.51); Absolute Neutrophil Count 5.8 X10^3/uL (2.0-7.7); Basophil# 0.07 X10^3/uL; Basophil% 0.8 % (0-1); Eosinophil# 0.11 X10^3/uL; Eosinophils% 1.3 % (0-5); Hematocrit 44.9 % (37-47); Hemoglobin 14.9 g/dL (12.0-15.0); Lymphocyte # 1.77 X10^3/ul (0.83-4.51); Lymphocyte % 21.1 % (19-41); Mean Corp Hgb Conc 33.2 g/dL (32-36); Mean Corpuscular Hgb 29.5 pg (27.0-32.0); Mean Corpuscular Volume 88.9 fL (81-99); Mean Platelet Vol. 9.5 fl (6.2-12.0); Monocyte# 0.58 X10^3/uL; Monocyte% 6.9 % (0-10); NRBC Flagged by Analyzer 0 % (0-5); Neutrophil # 5.84 X10^3/uL (2.7-7.7); Neutrophil % 69.7 % (47-70); Platelet Count 292 K/mm3 (150-450); RBC Distribution Width CV 12.1 % (11.6-14.6); RBC Distribution Width SD 38.8 fl (35.1-43.9); Red Blood Count 5.05 M/mm3 (4.2-5.4); White Blood Count 8.4 K/mm3 (4.4-11.0)
[2022-06-04 18:57] LABS: Anion Gap 5 (5-15); BUN 10 mg/dL (7-18); BUN/Creat Ratio 12.1 RATIO (10-20); Calcium,Total 9.1 mg/dL (8.5-10.1); Chloride 103 mmol/L (98-107); Creatinine, Serum 0.83 mg/dL (0.55-1.02); EST Glomerular Filtration Rate 88 mL/min (>60); Est Glom Filt Rate - Afr Amer 107 mL/min (>60); Glucose 74 mg/dL (74-106); Potassium 3.8 mmol/L (3.5-5.1); Sodium Level 138 mmol/L (136-145)
[2022-06-04 19:03] LABS: Alcohol, Blood (Medical)-Serum < 3.0 mg/dL
[2022-06-04 19:06] LABS: Internal QC Validated? YES +Cl - CLEAR BKGD; Pregnancy, Serum, hCG Quali. NEGATIVE Negative
--- NOTE | 2022-06-04 19:45 | HP.PCM_ITS ---
[facility] - General General Date of Admission: 06/04/22 Date of Service: 06/04/22 Chief Complaint: Alcohol and fentanyl abuse requesting withdrawal treatment HPI Narrative DAVID SINGLETON, is a 26 F who presents to the emergency room with chief complaint of polysubstance abuse. Patient has a long history of using fentanyl daily along with alcohol, 1/5 of whiskey and 3 beers routinely. She has a history of going through withdrawal treatment 1 year ago and states she has had a seizure in the past. She does have an outpatient plan in place down in [place] but is requesting support through the withdrawal period. Patient denies chest pain, shortness of breath no fevers or chills at present time. Patient is not nauseous and denies diarrhea. She is mildly anxious and states her last alcohol intake was this morning approximately 10 AM. Patient denies suicidal ideation and is voluntarily submitting to this program. [facility] Medical History ADHD Alcohol abuse Asthma Benzodiazepine abuse Manic bipolar I disorder PTSD (post-traumatic stress disorder) Substance abuse Tobacco use Home Medications lamotrigine 150 mg tablet 50 mg PO DAILY 03/11/21 [History Last Taken Unknown] medroxyprogesterone 150 mg/mL intramuscular suspension (Depo-Provera) 300 mg IM QMONTH 03/11/21 [History Last Taken Unknown] trazodone 100 mg tablet 100 mg PO QHS 03/11/21 [History Last Taken Unknown] docusate sodium 100 mg capsule (Colace) 200 mg PO DAILY 06/04/22 [History Last Taken Unknown] Allergy/AdvReac Type Severity Reaction Status Date / Time No Known Allergies Allergy Verified 03/11/21 23:44 Family History Father Heroin abuse Surgical History S/P tonsillectomy and adenoidectomy Social History household members: significant other Smoking Status: Current every day smoker tobacco type: cigarettes alcohol intake: current alcohol intake frequency: 3 or more drinks per day Alcohol type: beer and hard liquor details: 6-12 beers daily, 1 pint hard liqour daily. substance use type: former substance user Date of last use: Former heroin IV usage, on rx subutex. ROS Constitutional Constitutional: Denies chills or fever(s) Eyes Eyes: Denies change in vision ENT HEENT: Denies abnormal hearing Cardiovascular Cardiovascular: Denies chest pain Respiratory/Chest Respiratory/Chest: Denies cough Gastrointestinal Gastrointestinal: Denies abdominal pain Genitourinary Genitourinary: Denies dysuria Musculoskeletal Musculoskeletal: Denies back pain Integumentary Integumentary: Denies dry skin Neurologic Neurologic: Denies abnormal gait Psychiatric Psychiatric: Reports anxiety Vital Signs Vital Signs Vital Signs: 06/04/22 12:07 06/04/22 18:19 06/04/22 18:19 Temperature 98 F Temperature Source Temporal Pulse Rate 98 85 80 Respiratory Rate 18 17 17 Blood Pressure 143/84 H 130/62 H 130/62 H Blood Pressure Mean 103 84 84 Blood Pressure Source Monitor Blood Pressure Position Semi-Fowlers Blood Pressure Location Left Arm Pulse Ox 98 100 100 Oxygen Delivery Method Room Air Room Air Room Air Weight Weight: 150 lb Body Mass Index (BMI) 25.3 Physical Exam Const oriented x3 General Appearance: cooperative and well developed HEENT normocephalic and head/scalp atraumatic Eyes PERRL Neck no lymphadenopathy Resp normal respiratory effort, normal air movement and clear to auscultation bilaterally Cardio regular rate, regular rhythm, S1 normal heart sound and S2 normal heart sound GI soft to palpation and non-tender Extremity normal capillary refill Skin General Skin Exam: no breakdown Neuro no focal motor deficits and no sensory deficits noted Psych thought process normal Mood & Affect: anxious Results Lab / Micro Data Result Diagrams: 06/04/22 18:16 06/04/22 18:16 Labs: Laboratory Results - last 24 hr 06/04/22 12:20: Urine Opiates Screen NEGATIVE, Urine Methadone Screen NEGATIVE, Ur Barbiturates Screen POSITIVE H, Ur Phencyclidine Scrn NEGATIVE, Ur Amphetamines Screen NEGATIVE, MDMA (Ecstasy) Screen POSITIVE H, U Benzodiazep hanna Scrn NEGATIVE, Urine Cocaine Screen NEGATIVE, U Cannabinoids Screen NEGATIVE, Ur Drug Screen Comment 06/04/22 18:16: WBC 8.4, RBC 5.05, Hgb 14.9, Hct 44.9, MCV 88.9, MCH 29.5, MCHC 33.2, RDW Std Deviation 38.8, RDW Coeff of Soni 12.1, Plt Count 292, MPV 9.5, Immature Gran % (Auto) 0.200, Neut % (Auto) 69.7, Lymph % (Auto) 21.1, [place] % (Auto) 6.9, Eos % (Auto) 1.3, Baso % (Auto) 0.8, Absolute Neuts (auto) 5.8, Absolute Lymphs (auto) 1.77, Nucleated RBC % 0 06/04/22 18:16: Sodium 138, Potassium 3.8, Chloride 103, Carbon Dioxide 30.0, Anion Gap 5, BUN 10, Creatinine 0.83, Estim Creat Clear Calc 88.70, Est GFR (MDRD) Af Amer 107, Est GFR (MDRD) Non-Af 88, BUN/Creatinine Ratio 12.1, Glucose 74, Calcium 9.1 06/04/22 18:16: Ethyl Alcohol < 3.0 06/04/22 18:16: Serum , Qual NEGATIVE Assessment & Plan Assessment/Plan (1) Opiate abuse, continuous: (2) Alcohol abuse: PLAN: Plan 1. Alcohol abuse?requesting withdrawal?admit patient to general medical floor and placed on CISD protocol 2. Opiate abuse?requesting withdrawal subsistence for fentanyl use?we will place on withdrawal protocol and get case management to assist with discharge planning. Patient has a option in [place] that will accept her as an outpatient when she is gone through her withdrawal. Charges/Coding Visit Charges Inpatient E&M: 91487 Init Hosp L2
[2022-06-04 20:27] VITALS: BP 117/66; PULSE 75; RESP 18; TEMP 36.6; O2SAT 99
[2022-06-04 20:53] VITALS: BMI 27.3
[2022-06-04 21:17] VITALS: BP 103/57; PULSE 66; RESP 16; TEMP 36.9; O2SAT 100
[2022-06-04] MEDS: Phenobarbital 32.4 MG Tablet 64.8 MG PO (21:33)
[2022-06-04] MEDS: hydrOXYzine PAM 25 MG Capsule 50 MG PO (21:33)
[2022-06-04] MEDS: traZODone 100 MG Tablet PO (21:33)
[2022-06-04] MEDS: Dicyclomine 10 MG Capsule 20 MG PO (21:33)
[2022-06-04] MEDS: Methocarbamol 750 MG Tablet 1500 MG PO (21:33)
[2022-06-05 00:56] VITALS: BP 96/48; PULSE 68; RESP 14; TEMP 36.8; O2SAT 100
[2022-06-05] MEDS: Phenobarbital 32.4 MG Tablet 64.8 MG PO ×6 (01:02→21:14)
[2022-06-05 05:11] VITALS: BP 107/65; PULSE 66; RESP 16; TEMP 37.1; O2SAT 98
[2022-06-05] MEDS: Methocarbamol 750 MG Tablet 1500 MG PO ×2 (05:18→13:49)
--- NOTE | 2022-06-05 07:40 | PN.HOSP_ITS ---
Subjective Subjective Feels fatigued. Objective Data Objective Data Vital Signs: Vital Signs Temp Pulse Resp BP Pulse Ox O2 Del Method 37.1 C 66 16 107/65 98 Room Air 06/05/22 05:11 06/05/22 05:11 06/05/22 05:11 06/05/22 05:11 06/05/22 05:11 06/05/22 05:11 Oxygen Delivery Method Room Air Weight: 73.5 kg Body Mass Index (BMI) 27.3 Lab / Micro Data Result Diagrams: 06/04/22 18:16 06/04/22 18:16 Labs: Laboratory Results - last 24 hr 06/04/22 12:20: Urine Opiates Screen NEGATIVE, Urine Methadone Screen NEGATIVE, Ur Barbiturates Screen POSITIVE H, Ur Phencyclidine Scrn NEGATIVE, Ur Am phetamines Screen NEGATIVE, MDMA (Ecstasy) Screen POSITIVE H, U Benzodiazepines Scrn NEGATIVE, Urine Cocaine Screen NEGATIVE, U Cannabinoids Screen NEGATIVE, Ur Drug Screen Comment 06/04/22 18:16: WBC 8.4, RBC 5.05, Hgb 14.9, Hct 44.9, MCV 88.9, MCH 29.5, MCHC 33.2, RDW Std Deviation 38.8, RDW Coeff of Soni 12.1, Plt Count 292, MPV 9.5, Immature Gran % (Auto) 0.200, Neut % (Auto) 69.7, Lymph % (Auto) 21.1, [place] % (Auto) 6.9, Eos % (Auto) 1.3, Baso % (Auto) 0.8, Absolute Neuts (auto) 5.8, Absolute Lymphs (auto) 1.77, Nucleated RBC % 0 06/04/22 18:16: Sodium 138, Potassium 3.8, Chloride 103, Carbon Dioxide 30.0, Anion Gap 5, BUN 10, Creatinine 0.83, Estim Creat Clear Calc 88.70, Est GFR (MDRD) Af Amer 107, Est GFR (MDRD) Non-Af 88, BUN/Creatinine Ratio 12.1, Glucose 74, Calcium 9.1 06/04/22 18:16: Ethyl Alcohol < 3.0 06/04/22 18:16: Serum , Qual NEGATIVE Physical Exam Const alert and no apparent distress Skin Skin Narrative: bruising in right antecubital fossa. no cellulitis. Assessment & Plan Assessment/Plan (1) Opiate abuse, continuous: PLAN: Reportedly uses fentanyl. Last use was 6 AM on the . Drug screen was positive for MDMA and barbiturates. The patient is actually using fentanyl is not surprising is not showing up on the drug screen. Patient on buprenorphine taper Addiction medicine to help facilitate outpatient program (2) Alcohol abuse: PLAN: Drinks 3 beers and half a bottle of whiskey daily. Reportedly, her last drink was a beer on her way to the emergency room. Despite that, patient's alcohol level was essentially negative. Patient has been initiated on phenobarbital taper PLAN: Plan Chronic conditions * Bipolar: Continue with lamotrigine Charges/Coding Visit Charges Inpatient E&M: 66106 Subs Hosp L1
[2022-06-05 10:30] VITALS: BP 103/55; PULSE 74; RESP 16; TEMP 36.9; O2SAT 96
[2022-06-05] MEDS: Dicyclomine 10 MG Capsule 20 MG PO (10:33)
[2022-06-05] MEDS: hydrOXYzine PAM 25 MG Capsule 50 MG PO ×2 (10:33→18:00)
[2022-06-05] MEDS: Ibuprofen 600 MG Tablet PO (10:33)
[2022-06-05] MEDS: Thiamine Hydrochloride 100 MG Tablet PO (10:41)
[2022-06-05] MEDS: Folic Acid 1 MG Tablet PO (10:41)
[2022-06-05] MEDS: Docusate Sodium 100 MG Capsule 200 MG PO (10:41)
--- NOTE | 2022-06-05 11:45 | ADDICTION ---
This scientific writer met with PT to conduct ASAM, MSE, AUDIT, DUDIT assessments and to plan for d/c. PT A+Ox4 and participated actively. All assessments completed and placed in PT's chart. PT plans to f/u with [facility] in [place] for follow-up outpatient treatment services. PT did not indicate a need for transportation post d/c from [facility].
[2022-06-05] MEDS: lamoTRIgine 100 MG Tablet 50 MG PO (13:48)
[2022-06-05] MEDS: Gabapentin 300 MG Capsule PO ×2 (13:49→22:08)
[2022-06-05 13:51] VITALS: BP 95/48; PULSE 71; RESP 16; TEMP 37.1; O2SAT 96
[2022-06-05 14:00] VITALS: BP 95/48; PULSE 71; RESP 16; TEMP 37.1; O2SAT 98
[2022-06-05 21:08] VITALS: BP 101/61; PULSE 62; RESP 16; TEMP 36.8; O2SAT 97
[2022-06-05] MEDS: traZODone 100 MG Tablet PO (21:14)
[2022-06-06 01:17] VITALS: BP 105/58; PULSE 73; RESP 18; TEMP 36.9; O2SAT 97
[2022-06-06] MEDS: Phenobarbital 32.4 MG Tablet 64.8 MG PO ×6 (01:20→20:53)
[2022-06-06 05:33] VITALS: BP 114/60; PULSE 68; RESP 16; TEMP 36.8; O2SAT 97
--- NOTE | 2022-06-06 07:15 | PCM.PN.HOSP ---
Subjective Subjective Feeling tired. Denies any other complaints. Objective Data Objective Data Vital Signs: Vital Signs Temp Pulse Resp BP Pulse Ox O2 Del Method 36.8 C 68 16 114/60 97 Room Air 06/06/22 05:33 06/06/22 05:33 06/06/22 05:33 06/06/22 05:33 06/06/22 05:33 06/06/22 05:33 Oxygen Delivery Method Room Air Weight: 73.5 kg Body Mass Index (BMI) 27.3 Lab / Micro Data Result Diagrams: 06/04/22 18:16 06/04/22 18:16 Physical Exam Const Constitutional Narrative: Sleeping but easily wakes. Flat affect. Nontoxic. HEENT head/scalp atraumatic and moist oral mucous membranes Assessment & Plan Assessment/Plan (1) Opiate abuse, continuous: PLAN: Reportedly uses fentanyl. Last use was 6 AM on the . Drug screen was positive for MDMA and barbiturates. The patient is actually using fentanyl is not surprising is not showing up on the drug screen. Patient on buprenorphine taper Addiction medicine to help facilitate outpatient program (2) Alcohol abuse: PLAN: Drinks 3 beers and half a bottle of whiskey daily. Reportedly, her last drink was a beer on her way to the emergency room. Despite that, patient's alcohol level was essentially negative. Patient has been initiated on phenobarbital taper PLAN: Plan Chronic conditions Bipolar: Continue with lamotrigine Charges/Coding Visit Charges Inpatient E&M: 50902 [facility] Hosp L1
[2022-06-06 08:03] VITALS: BP 103/57; PULSE 76; RESP 18; TEMP 37; O2SAT 97
[2022-06-06] MEDS: Docusate Sodium 100 MG Capsule 200 MG PO (08:08)
[2022-06-06] MEDS: Folic Acid 1 MG Tablet PO (08:09)
[2022-06-06] MEDS: Thiamine Hydrochloride 100 MG Tablet PO (08:09)
[2022-06-06] MEDS: Gabapentin 300 MG Capsule PO ×2 (08:13→17:22)
[2022-06-06] MEDS: lamoTRIgine 100 MG Tablet 50 MG PO (09:26)
[2022-06-06 13:11] VITALS: BP 101/52; PULSE 74; RESP 18; TEMP 36.9; O2SAT 97
[2022-06-06] MEDS: hydrOXYzine PAM 25 MG Capsule 50 MG PO (13:19)
[2022-06-06] MEDS: traZODone 100 MG Tablet PO (20:53)
[2022-06-06 20:56] VITALS: BP 109/53; PULSE 71; RESP 16; TEMP 36.6; O2SAT 98
[2022-06-07] MEDS: Phenobarbital 32.4 MG Tablet 64.8 MG PO ×3 (00:52→11:04)
[2022-06-07 03:00] VITALS: BP 104/55; PULSE 74; RESP 16; TEMP 36.6; O2SAT 97
[2022-06-07 05:00] VITALS: BP 125/52; PULSE 75; RESP 16; TEMP 36.7; O2SAT 98
[2022-06-07] MEDS: lamoTRIgine 100 MG Tablet 50 MG PO (09:06)
[2022-06-07] MEDS: Gabapentin 300 MG Capsule PO (09:06)
[2022-06-07] MEDS: Docusate Sodium 100 MG Capsule 200 MG PO (09:07)
[2022-06-07] MEDS: Folic Acid 1 MG Tablet PO (09:07)
[2022-06-07] MEDS: Thiamine Hydrochloride 100 MG Tablet PO (09:07)
--- NOTE | 2022-06-07 09:50 | DCINST_ITS ---
Discharge Instructions Diet Discharge Diet: No restrictions Activity Discharge Activity: Return to Normal Activity Follow Up Care Test Results: Test results from this visit will be discussed in further detail at your follow- up appointment, if applicable. Discharge Plan Admission Admit Date/Time: 06/04/22 19:51 Primary Reason for Your Visit: alcohol withdrawal. Attending Provider: Erickson Simmons Primary Care Provider: Cleo Cooney,No Primary Consulting Providers: Chalino Alonso Discharge Orders/Prescriptions Prescriptions: New multivitamin Tablet 1 tab PO DAILY Qty: 30 0RF Continued lamotrigine 150 mg Tablet 50 mg PO DAILY trazodone 100 mg Tablet 100 mg PO QHS medroxyprogesterone [Depo-Provera] 150 mg/mL Suspension 300 mg IM QMONTH Label Comments: every three months docusate sodium [Colace] 100 mg Capsule 200 mg PO DAILY Referrals / Follow Up: Care Physician,No Primary [Primary Care Provider] - Disposition Disposition (needs filled in before D/C Order can be placed): Home, Self Care
--- NOTE | 2022-06-07 09:52 | DS.PCM_ITS ---
Providers Date of Admission: 06/04/22 Primary Care Physician: Carolyn Primary Care Phys Reason For Visit: ALCOHOL AND FENTANYL WITHDRAWAL Diagnosis Discharge Diagnosis (1) Alcohol abuse: Status: Acute Code(s): F10.10 - Alcohol abuse, uncomplicated Plan: Drinks 3 beers and half a bottle of whiskey daily. Reportedly, her last drink was a beer on her way to the emergency room. Despite that, patient's alcohol level was essentially negative. Patient has been initiated on phenobarbital taper Continue with multivitamin (2) Opiate abuse, continuous: Status: Acute Code(s): F11.10 - Opioid abuse, uncomplicated Plan: Reportedly uses fentanyl. Last use was 6 AM on the . Drug screen was positive for MDMA and barbiturates. The patient is actually using fentanyl is not surprising is not showing up on the drug screen. Patient did not receive buprenorphine during this hospitalization that was ordered Addiction medicine to help facilitate outpatient program Plan Chronic conditions * Bipolar: Continue with lamotrigine Patient present here with her boyfriend. She will not be leaving with him as his course became more complicated. Patient was made aware of this with her boyfriend's permission. Medications at Discharge Home Medications lamotrigine 150 mg tablet 50 mg PO DAILY bipolar 03/11/21 medroxyprogesterone 150 mg/mL intramuscular suspension (Depo-Provera) 300 mg IM QMONTH control 03/11/21 trazodone 100 mg tablet 100 mg PO QHS sleep 03/11/21 docusate sodium 100 mg capsule (Colace) 200 mg PO DAILY stool softener 06/04/22 multivitamin 1 tab PO DAILY #30 tabs 06/07/22 Hospital Course Operations None Procedures None Weight / BMI Weight Weight: 73.5 kg Body Mass Index (BMI) 27.3 ABG / Lab / Microbiology Data Result Diagrams: 06/04/22 18:16 06/04/22 18:16 D/C Instructions Discharge Diet: No restrictions Meaningful Use Info Meaningful Use Diagnoses (Choose all that apply): None applicable Discharge Plan Admission Admit Date/Time: 06/04/22 19:51 Primary Reason for Your Visit: alcohol withdrawal. Attending Provider: Erickson Simmons Primary Care Provider: Care Physician,No Primary Consulting Providers: Chalino Alonso Discharge Orders/Prescriptions Prescriptions: New multivitamin Tablet 1 tab PO DAILY Qty: 30 0RF Continued lamotrigine 150 mg Tablet 50 mg PO DAILY trazodone 100 mg Tablet 100 mg PO QHS medroxyprogesterone [Depo-Provera] 150 mg/mL Suspension 300 mg IM QMONTH Label Comments: every three months docusate sodium [Colace] 100 mg Capsule 200 mg PO DAILY Referrals / Follow Up: Care Physician,No Primary [Primary Care Provider] - Disposition Disposition (needs filled in before D/C Order can be placed): Home, Self Care Charges/Coding Visit Charges Inpatient E&M: 83727 Disch Hosp
[2022-06-07 10:30] VITALS: BP 109/78; PULSE 74; RESP 16; TEMP 36.9; O2SAT 94
--- NOTE | 2022-06-07 12:06 | NURSING ---
discussed discharge situation regarding significant other with feed house supervisor. discussed with primary RN, joelle goldman [facility] information provided.
--- NOTE | 2022-06-07 14:25 | NURSING ---
in to talk with patient as requesting to talk with the physician about her discharge. discussed s/o having the keys to the car which she states is not in her name and refusal to give keys to her as she is being discharged first. discussed that she had called down to talk with [employer] NANNY. discussed that as part of [facility] agreement we can not be relaying messages back and forth and she can not talk with patient. (had received phone call from ICU nurse that patient had called down asking to talk with patient to relay that she is discharged and no one else can come get her) Discussed with patient options of calling her insurance for transportation, discussed calling friends and family members including father listed. Discussed with patient that even if message was relayed exactly how she wanted it worded to s.o. and he said no we can not force him to give her the car keys if legally not hers. Discussed alternative housing including going to every womens house and shelters in [facility] until s.o. is discharged and able to contact her himself. Patient requesting to talk with packing house laborer in relation to conversation she had with ICU nurse. Insurance Risk Manager Sis on unit, updated on situation and patient's request.
--- NOTE | 2022-06-07 15:59 | NURSING ---
aware per Dr. Simmons significant other listed is leaving AMA and patient is to leave, pt has been asked to leave as discharge completed. reji from security called to escort patient Cesia to main enterance.
== END 2022-06-07 16:07 | disposition home or self-care (01) | DRG 772 ==
LOC: ED 18:19 → MS3 20:44
PROVIDERS: Admitting Provider Family Medicine; Emergency Provider Emergency Medicine
DX: F11.13 Opioid abuse with withdrawal (principal); F31.9 Bipolar disorder, unspecified; F10.139 Alcohol abuse with withdrawal, unspecified; F17.210 Nicotine dependence, cigarettes, uncomplicated; F43.10 Post-traumatic stress disorder, unspecified; Z79.899 Other long term (current) drug therapy
CPT/HCPCS: 80048; 80307; 82077; 84703; 85025; 99284; A4216

== ENCOUNTER 2022-07-04 02:43 | Inpatient (IN) | payer MEDICAID, SELFPAY ==
[2022-07-04] VITALS (8 sets, daily range): BP systolic 104–126; BP diastolic 64–75; PULSE 70–97; RESP 14–18; TEMP 36.7–36.9; O2SAT 97–99; BMI 25.7; BMI 27.1
--- NOTE | 2022-07-04 03:17 | EX.ED.SAOD ---
HPI History of Present Illness Chief Complaint: Substance Abuse Informant: patient Onset/Context/Timing Onset: Today Context: Gradual Onset Timing: Continuous Worsened by: Nothing Relieved by: Nothing Associated Symptoms Associated Symptoms: Positive for no; Negative for vomiting*, diarrhea*, fever*, rash*, seizure, tremor, palpatations, change in mental status, suicidal ideation or homicidal ideation Narrative Narrative: Patient presents requesting detox from fentanyl, alcohol, and Xanax. Patient states she uses approximately 1 g of fentanyl per day. Patient injects intravenously. Patient states her last use was earlier this morning. Patient states she drinks half a bottle of hard liquor and 3-4 tall boys per day. Patient states her last drink was 1 to 2 hours ago. Patient denies any nausea or vomiting. Patient denies any diarrhea. Patient denies any seizures or tremors. Patient denies any chance of . Patient denies any suicidal or homicidal ideations. Patient states her last detox was approximately 3 weeks ago. Prior similar symptoms: Yes PFSH PFSH Medical History ADHD Alcohol abuse Asthma Benzodiazepine abuse Manic bipolar I disorder PTSD (post-traumatic stress disorder) Substance abuse Tobacco use Home Medications lamotrigine 150 mg tablet 50 mg PO DAILY bipolar 03/11/21 [History Last Taken Unknown] medroxyprogesterone 150 mg/mL intramuscular suspension (Depo-Provera) 300 mg IM QMONTH control 03/11/21 [History Last Taken 04/05/22] multivitamin 1 tab PO DAILY #30 tabs 06/07/22 [Rx Last Taken Unknown] gabapentin 300 mg capsule 600 mg PO BID 07/04/22 [History Last Taken Unknown] quetiapine 100 mg tablet 100 mg PO QHS 07/04/22 [History Last Taken Unknown] Allergy/AdvReac Type Severity Reaction Status Date / Time No Known Allergies Allergy Verified 07/04/22 02:47 Family History Father Heroin abuse Surgical History S/P tonsillectomy and adenoidectomy Social History household members: significant other Smoking Status: Current every day smoker tobacco type: cigarettes alcohol intake: current alcohol intake frequency: 3 or more drinks per day Alcohol type: beer and hard liquor details: 6-12 beers daily, 1 pint hard liqour daily. substance use type: former substance user Date of last use: Former heroin IV usage, on rx subutex. ROS ROS ED Constitutional Constitutional ED: Denies chills or fever(s) Eyes Eyes: Denies blurry vision or change in vision ENT ENT ED: Denies rhinorrhea or sore throat Cardiovascular Cardiovascular: Denies chest pain or palpitations Respiratory/Chest Respiratory/Chest: Denies cough or dyspnea Gastrointestinal Gastrointestinal: Denies nausea or vomiting Genitourinary Genitourinary ED: Denies dysuria or hematuria Musculoskeletal Musculoskeletal: Reports back pain and neck pain Integumentary Denies abscess or rash Neurologic Neurologic: Denies headache(s) or weakness Allergic/Immunologic Allergic/Immunologic ED: Denies mouth swelling or urticaria EXAM Physical Exam Const Vital Signs: 07/04/22 02:44 Temperature 98.4 F Temperature Source Oral Pulse Rate 97 Respiratory Rate 15 Blood Pressure 121/75 H Blood Pressure Mean 90 Pulse Ox 99 Oxygen Delivery Method Room Air Positive well nourished and well developed General Appearance ED: well developed HEENT Reports moist mucous membranes Neck supple and no JVD Resp normal respiratory effort and clear to auscultation bilaterally Cardio regular rate, regular rhythm and no murmurs GI normal to inspection, nondistended, normoactive bowel sounds and non-tender Palpation: soft Extremity normal to inspection General Extremety ED: Negative for edema or tenderness General Extremity: Negative for edema Neuro oriented x3, CN's II-XII intact bilaterally and no sensory deficits noted Sensorium / Orientation: alert Motor Exam: strength 5/5 throughout Psych mental status grossly normal Skin no rashes or lesions noted MDM MDM MDM Narrative Medical decision making narrative: Basic labs were obtained. Case was discussed with the hospitalist. He will admit the patient for detox. Patient understood and was agreeable with the plan. All questions were answered. Discharge Plan Triage Chief Complaint: Substance Abuse ED Provider: Erickson Pickett Dx/Rx/DC Orders Clinical Impression: Opiate withdrawal, Alcohol withdrawal Prescriptions: No Action lamotrigine 150 mg Tablet 50 mg PO DAILY medroxyprogesterone [Depo-Provera] 150 mg/mL Suspension 300 mg IM QMONTH Label Comments: every three months multivitamin Tablet 1 tab PO DAILY Qty: 30 0RF quetiapine 100 mg tablet 100 mg PO QHS gabapentin 300 mg capsule 600 mg PO BID Primary Care Provider: [facility] Doctor,Out of Referrals: [facility] Doctor,Out of [Primary Care Provider] - Disposition Disposition: Acute [facility]
--- NOTE | 2022-07-04 03:27 | PCM.HP.STD ---
[facility] - General General Date of Admission: 07/04/22 Date of Service: 07/04/22 Chief Complaint: Desire for detoxification HPI Narrative DAVID SINGLETON, is a 26 F with a significant history of asthma; tobacco abuse; seizures (reportedly from withdrawal); alcoholism and polysubstance abuse who presents emergency department with a desire for detoxification. Her drugs of choice fentanyl and Xanax. Fentanyl use: She shoots about a gram of fentanyl per day. Last time she used was about a day before presentation. All and all she has been using since she was about age 16 years. She was clean for about 4 years; and resumed using about 8 months ago. She has an outpatient prescription for Suboxone but she is not using Suboxone at this time since she is on fentanyl. Alcoholism: She drinks about 3-4 tall boys per day. Also she splits about a fifth of whiskey with her every day. Last time she drank was on her way to the emergency department. She has been drinking since about age 12 years. She was clean for about 4 years and resumed drinking about 8 months ago. Xanax use: She snorts about 2-3 bouts of Xanax per day. Last time she used Xanax was a day or 2 before presentation. She has been using Xanax since she was about age 18 years. She was clean for about 4 years and she resumed using about 8 months ago. Marijuana use: Rarely she use marijuana when it is available. Patient presents emergency department with her john and her father for joint detoxification. She report that her grandmother a day before presentation. She reported her grandmother from cancer and she is very sad because she was taking care of her grandmother. Of note patient was at a hospital on 06/04/2022 and was discharged on 06/07/2022 for detoxification. At that time she did not take prescribed Subutex. She took only phenobarbital and other adjunctive medication. She denies any withdrawal symptoms. [facility] Medical History ADHD Alcohol abuse Asthma Benzodiazepine abuse Manic bipolar I disorder PTSD (post-traumatic stress disorder) Substance abuse Tobacco use Home Medications lamotrigine 150 mg tablet 50 mg PO DAILY bipolar 03/11/21 [History Last Taken Unknown] medroxyprogesterone 150 mg/mL intramuscular suspension (Depo-Provera) 300 mg IM QMONTH control 03/11/21 [History Last Taken 04/05/22] multivitamin 1 tab PO DAILY #30 tabs 06/07/22 [Rx Last Taken Unknown] gabapentin 300 mg capsule 600 mg PO BID 07/04/22 [History Last Taken Unknown] quetiapine 100 mg tablet 100 mg PO QHS 07/04/22 [History Last Taken Unknown] Allergy/AdvReac Type Severity Reaction Status Date / Time No Known Allergies Allergy Verified 07/04/22 02:47 Family History Father Heroin abuse Surgical History S/P tonsillectomy and adenoidectomy Social History household members: significant other Smoking Status: Current every day smoker tobacco type: cigarettes alcohol intake: current alcohol intake frequency: 3 or more drinks per day Alcohol type: beer and hard liquor details: 6-12 beers daily, 1 pint hard liqour daily. substance use type: former substance user Date of last use: Former heroin IV usage, on rx subutex. ROS ROS Narrative Pertinent positives and pertinent negatives as noted in HPI. All other systems were reviewed and are negative Vital Signs Vital Signs Vital Signs: 07/04/22 02:44 Temperature 98.4 F Temperature Source Oral Pulse Rate 97 Respiratory Rate 15 Blood Pressure 121/75 H Blood Pressure Mean 90 Pulse Ox 99 Oxygen Delivery Method Room Air Weight Weight: 68.039 kg Body Mass Index (BMI) 25.7 Physical Exam Narrative Physical exam: General: Well-nourished, well-developed. Head: Normocephalic, atraumatic, no tenderness Eyes: Vision is grossly intact. EOMI ENT, no trauma, moist mucous membranes, no rhinorrhea Neck: Nontender, No thyromegaly. CVS: Regular rate and rhythm. S1-S2 present. No murmur, gallop or rub. Respiratory : clear to auscultation bilaterally, chest wall nontender, no wheezing Abdomen: Soft, nontender, nondistended, normal bowel sounds, no masses : Deferred Back: Nontender, no CVA tenderness, no midline spinal tenderness, deformities, step-offs Extremities: Nontender full range of motion, no trauma Skin: Normal color, no trauma, abrasions Neuro: Alert, oriented, cranial nerves II through XII grossly intact. Psychiatry: Normal mood. Normal affect. Not depressed. Not anxious. Results Lab / Micro Data Result Diagrams: 07/04/22 03:47 07/04/22 03:47 Assessment & Plan Assessment/Plan (1) Desire for detoxification: (2) Opioid abuse: (3) Alcohol abuse: (4) Benzodiazepine abuse: PLAN: Plan Alcohol dependence and desire for detoxification/benzo detoxification Patient be started on phenobarbital and other adjunctive medications: Gabapentin as needed; dicyclomine as needed; Vistaril as needed; Imodium as needed; trazodone as needed; Zofran as needed; scheduled thiamine; and schedule folic acid. Monitor CIWA score Opioid dependence and withdrawal Declined Subutex at this time. Adjunctive medications as above. Monitor COWS and CINA score Tobacco abuse Counseled Nicotine patch prescribed. DVT prophylaxis Low risk Encourage to ambulate Charges/Coding Visit Charges Inpatient E&M: 26687 Init Hosp L2
[2022-07-04 04:00] LABS: Color, Urine Yellow (Yellow); Glucose, Dipstick Normal (Normal); Ketone-Dipstick Negative (Negative); Leukocyte Esterase-Dipstick 25 /ul (Negative); Nitrite-Dipstick Negative (Negative); Occult Blood-Urine 25 /ul (Negative); Protein-Dipstick 15 mg/dl (Negative); Urine Bilirubin Dipstick Negative (Negative); Urine Clarity Clear (Clear); Urine Urobilinogen Normal (Normal)
[2022-07-04 04:10] LABS: Amphetamine Urine VISTA NEGATIVE (<1000 ng/mL); Barbiturate Urine VISTA POSITIVE (< 200 ng/mL); Benzodiazepine Urine VISTA NEGATIVE (< 200 ng/mL); Cocaine Urine VISTA NEGATIVE (< 300 ng/mL); Ecstacy Urine VISTA POSITIVE (< 500 ng/mL); Methadone Urine VISTA NEGATIVE (< 300 ng/mL); PCP Urine VISTA NEGATIVE (< 25 ng/mL); THC Urine VISTA NEGATIVE (< 50 ng/mL); Vista UDS pH Range 4
[2022-07-04 04:17] LABS: Absolute Lymphocyte Count 3.68 X10^3/uL (0.83-4.51); Absolute Neutrophil Count 4.1 X10^3/uL (2.0-7.7); Basophil# 0.08 X10^3/uL; Basophil% 0.9 % (0-1); Eosinophil# 0.22 X10^3/uL; Eosinophils% 2.5 % (0-5); Hematocrit 40.6 % (37-47); Hemoglobin 13.5 g/dL (12.0-15.0); Lymphocyte # 3.68 X10^3/ul (0.83-4.51); Lymphocyte % 42.4 % (19-41); Mean Corp Hgb Conc 33.3 g/dL (32-36); Mean Corpuscular Volume 87.3 fL (81-99); Mean Platelet Vol. 10.2 fl (6.2-12.0); Monocyte# 0.57 X10^3/uL; Monocyte% 6.6 % (0-10); NRBC Flagged by Analyzer 0 % (0-5); Neutrophil % 47.4 % (47-70); Platelet Count 273 K/mm3 (150-450); RBC Distribution Width CV 11.8 % (11.6-14.6); RBC Distribution Width SD 37.8 fl (35.1-43.9); Red Blood Count 4.65 M/mm3 (4.2-5.4); White Blood Count 8.7 K/mm3 (4.4-11.0)
[2022-07-04 04:20] LABS: Internal QC Validated? YES +Cl - CLEAR BKGD; Pregnancy, Serum, hCG Quali. NEGATIVE Negative
[2022-07-04 04:26] LABS: ALB/GLOB Ratio 0.9 RATIO (0.9-2.4); AST(SGOT) 18 U/L (15-37); Alanine Aminotransfer ALT/SGPT 15 U/L (13-56); Albumin, Serum 3.6 g/dL (3.2-5.0); Alkaline Phosphatase 70 U/L (45-117); Anion Gap 5 (5-15); BUN 8 mg/dL (7-18); BUN/Creat Ratio 9.8 RATIO (10-20); Calcium,Total 8.8 mg/dL (8.5-10.1); Chloride 107 mmol/L (98-107); Creatinine, Serum 0.81 mg/dL (0.55-1.02); EST Glomerular Filtration Rate 90 mL/min (>60); Est Glom Filt Rate - Afr Amer 109 mL/min (>60); Estimated Creatinine Clearance 90.89 ml/min; Globulin 3.9 g/dL (2.2-4.2); Glucose 90 mg/dL (74-106); Potassium 3.9 mmol/L (3.5-5.1); Protein, Total 7.5 g/dL (6.4-8.2); Sodium Level 138 mmol/L (136-145)
[2022-07-04 04:27] LABS: Bacteria 1+ /hpf (None Seen); Mucous, Urine 2+ /hpf (<or=2+); Red Blood Cells-Urine 0-5 SEEN /hpf (0-5); Squamous Epithelial Cells - UA 0-5 SEEN /hpf (5-10); White Blood Cells 0-5 SEEN /hpf (0-5)
[2022-07-04] MEDS: Phenobarbital 32.4 MG Tablet PO ×6 (05:25→23:48)
[2022-07-04] MEDS: Dicyclomine 10 MG Capsule 20 MG PO ×2 (05:25→18:43)
[2022-07-04] MEDS: Gabapentin 300 MG Capsule PO ×2 (05:26→16:21)
--- NOTE | 2022-07-04 06:09 | NURSING ---
Patient requesting Trazdone or a dose of Seroquel to help sleep. DR. Barron consulted and due to time denies request. Patient informed and in disagreement with decision
[2022-07-04] MEDS: Folic Acid 1 MG Tablet PO (08:01)
[2022-07-04] MEDS: Multivitamins,Therapeutic Tablet 1 TABLET PO (08:02)
[2022-07-04] MEDS: Thiamine Hydrochloride 100 MG Tablet PO (08:03)
[2022-07-04] MEDS: Senna/Docusate Sodium 1 Tablet PO ×2 (08:03→20:03)
[2022-07-04] MEDS: lamoTRIgine 150 MG Tablet 50 MG PO (10:22)
[2022-07-04] MEDS: Methocarbamol 750 MG Tablet 1500 MG PO ×2 (12:01→21:42)
--- NOTE | 2022-07-04 13:03 | NURSING ---
Dr Thornton aware pt triggered 8 or more on the COWS intervention, it is noted in report that pt refuses subutex.
--- NOTE | 2022-07-04 15:25 | PN.HOSP_ITS ---
Subjective Subjective Follow-up on acute alcohol/opiate withdrawal: Patient was seen and examined. No acute events overnight. Objective Data Objective Data Vital Signs: Vital Signs Temp Pulse Resp BP Pulse Ox O2 Del Method 98.5 F 80 14 104/64 97 Room Air 07/04/22 14:09 07/04/22 14:09 07/04/22 14:09 07/04/22 14:09 07/04/22 14:09 07/04/22 07:48 Oxygen Delivery Method Room Air Weight: 73.8 kg Body Mass Index (BMI) 27.1 Lab / Micro Data Result Diagrams: 07/04/22 03:47 07/04/22 03:47 Labs: Laboratory Results - last 24 hr 07/04/22 03:47: WBC 8.7, RBC 4.65, Hgb 13.5, Hct 40.6, MCV 87.3, MCH 29.0, MCHC 33.3, RDW Std Deviation 37.8, RDW Coeff of Soni 11.8, Plt Count 273, MPV 10.2, Immature Gran % (Auto) 0.200, Neut % (Auto) 47.4, Lymph % (Auto) 42.4 H, [place] % (Auto) 6.6, Eos % (Auto) 2.5, Baso % (Auto) 0.9, Absolute Neuts (auto) 4.1, Absolute Lymphs (auto) 3.68, Nucleated RBC % 0 07/04/22 03:47: Sodium 138, Potassium 3.9, Chloride 107, Carbon Dioxide 26.0, An ion Gap 5, BUN 8, Creatinine 0.81, Estim Creat Clear Calc 90.89, Est GFR (MDRD) Af Amer 109, Est GFR (MDRD) Non-Af 90, BUN/Creatinine Ratio 9.8 L, Glucose 90, Calcium 8.8, Total Bilirubin 0.30, AST 18, ALT 15, Alkaline Phosphatase 70, Total Protein 7.5, Albumin 3.6, Globulin 3.9, Albumin/Globulin Ratio 0.9 07/04/22 03:47: Ethyl Alcohol 9.0 07/04/22 03:47: Serum , Qual NEGATIVE 07/04/22 03:47: Urine Color Yellow, Urine Clarity Clear, Urine pH 6.0, Ur Specific [place] 1.020, Urine Protein 15 H, Urine Glucose (UA) Normal, Urine Ketones Negative, Urine Occult Blood 25 H, Urine Nitrite Negative, Urine Bilirubin Negative, Urine Urobilinogen Normal, Ur Leukocyte Esterase 25 H, Urine RBC 0-5 SEEN, Urine WBC 0-5 SEEN, Ur Squamous Epith Cells 0-5 SEEN, Urine Bacteria 1+, Urine Mucus 2+ 07/04/22 03:47: Urine Opiates Screen NEGATIVE, Urine Methadone Screen NEGATIVE, Ur Barbiturates Screen POSITIVE H, Ur Phencyclidine Scrn NEGATIVE, Ur Amphetamines Screen NEGATIVE, MDMA (Ecstasy) Screen POSITIVE H, U Benzodiazepines Scrn NEGATIVE, Urine Cocaine Screen NEGATIVE, U Cannabinoids Screen NEGATIVE, Ur Drug Screen Comment Physical Exam Narrative Physical exam: General: Alert, Oriented x3, Cooperative HEENT: Atraumatic Oral: Moist Mucosa Neck: Supple Lungs: Clear to auscultation Cardiovascular: HS I+II, regular, no murmurs Abdomen: Bowel Sounds Present, Soft, Non Tender Extremities: No edema Skin: No rashes, No breakdown Neurological: Grossly intact Psych/Mental Status: Appropriate Assessment & Plan Assessment/Plan (1) Desire for detoxification: (2) Opioid abuse: (3) Alcohol abuse: (4) Benzodiazepine abuse: PLAN: Plan 1. Acute alcohol withdrawal, slowly improving Continue on phenobarb taper, folic acid, multivitamin, and thiamine 2. Acute opioid withdrawal, patient refused Subutex, continue to monitor 3. Nicotine dependence, continue on replacement 4. DVT PPx-low risk; early ambulation recommended Charges/Coding Visit Charges Inpatient E&M: 91817 Subs Hosp L2
[2022-07-04] MEDS: QUEtiapine 100 MG Tablet PO (20:04)
[2022-07-05 02:20] VITALS: BP 124/84; PULSE 65; RESP 16; TEMP 36.7; O2SAT 98
[2022-07-05] MEDS: Phenobarbital 32.4 MG Tablet PO ×5 (04:24→20:32)
[2022-07-05 09:23] VITALS: BP 98/62; PULSE 72; RESP 18; TEMP 36.9; O2SAT 98
[2022-07-05] MEDS: 0.9% Saline Lock 10 ML Syringe IV (09:32)
[2022-07-05] MEDS: Thiamine Hydrochloride 100 MG Tablet PO (09:32)
[2022-07-05] MEDS: lamoTRIgine 150 MG Tablet 50 MG PO (09:33)
[2022-07-05] MEDS: Senna/Docusate Sodium 1 Tablet PO ×2 (09:34→20:25)
[2022-07-05] MEDS: Multivitamins,Therapeutic Tablet 1 TABLET PO (09:34)
[2022-07-05] MEDS: Folic Acid 1 MG Tablet PO (09:34)
[2022-07-05] MEDS: Gabapentin 300 MG Capsule PO ×2 (09:46→18:00)
[2022-07-05] MEDS: Dicyclomine 10 MG Capsule 20 MG PO (09:46)
--- NOTE | 2022-07-05 10:28 | ADDICTION ---
This service writer advisor met with PT to conduct ASAM, MSE, AUDIT, DUDIT assessments and to plan for d/c. PT A+Ox4 and participated actively. All assessments completed and placed in PT's chart. PT plans to f/u with follow-up treatment services, however she wanted to discuss it with her family upon d/c. This worker offered resources based on her listed wants and needs. She reports that she is leaning towards [facility] since she is already established there. PT did not indicate a need for transportation post d/c from [facility].
--- NOTE | 2022-07-05 11:56 | PCM.PN.HOSP ---
Subjective Subjective Follow-up on acute alcohol/opiate withdrawal: Patient was seen and examined. No acute events overnight. Objective Data Objective Data Vital Signs: Vital Signs Temp Pulse Resp BP Pulse Ox O2 Del Method 98.4 F 72 18 98/62 98 Room Air 07/05/22 09:23 07/05/22 09:23 07/05/22 09:23 07/05/22 09:23 07/05/22 09:23 07/05/22 09:23 Oxygen Delivery Method Room Air Weight: 73.8 kg Body Mass Index (BMI) 27.1 Lab / Micro Data Result Diagrams: 07/04/22 03:47 07/04/22 03:47 Physical Exam Narrative Physical exam: General: Alert, Oriented x3, Cooperative HEENT: Atraumatic Oral: Moist Mucosa Neck: Supple Lungs: Clear to auscultation Cardiovascular: HS I+II, regular, no murmurs Abdomen: Bowel Sounds Present, Soft, Non Tender Extremities: No edema Skin: No rashes, No breakdown Neurological: Grossly intact Psych/Mental Status: Appropriate Assessment & Plan Assessment/Plan (1) Desire for detoxification: (2) Opioid abuse: (3) Alcohol abuse: (4) Benzodiazepine abuse: PLAN: Plan 1. Acute alcohol withdrawal, slowly improving Continue on phenobarb taper, folic acid, multivitamin, and thiamine 2. Acute opioid withdrawal, patient refused Subutex, continue to monitor 3. Nicotine dependence, continue on replacement 4. DVT PPx-low risk; early ambulation recommended Charges/Coding Visit Charges Inpatient E&M: 27440 [facility] Hosp L1
[2022-07-05 15:00] VITALS: BP 123/67; PULSE 72; RESP 18; TEMP 37.3; O2SAT 99
[2022-07-05] MEDS: QUEtiapine 100 MG Tablet PO ×3 (20:24→20:25)
[2022-07-05] MEDS: Methocarbamol 750 MG Tablet 1500 MG PO (20:24)
[2022-07-05 21:00] VITALS: BP 111/76; PULSE 74; RESP 16; TEMP 37.3; O2SAT 96
[2022-07-06] MEDS: Phenobarbital 32.4 MG Tablet PO ×5 (00:46→17:15)
[2022-07-06 08:41] VITALS: BP 109/70; PULSE 66; RESP 16; TEMP 36.8; O2SAT 98
[2022-07-06] MEDS: lamoTRIgine 150 MG Tablet 50 MG PO (08:43)
[2022-07-06] MEDS: Multivitamins,Therapeutic Tablet 1 TABLET PO (08:43)
[2022-07-06] MEDS: Folic Acid 1 MG Tablet PO (08:43)
[2022-07-06] MEDS: Senna/Docusate Sodium 1 Tablet PO ×2 (08:43→22:28)
[2022-07-06] MEDS: Thiamine Hydrochloride 100 MG Tablet PO (08:43)
[2022-07-06 12:40] VITALS: BP 122/74; PULSE 89; RESP 16; TEMP 36.6; O2SAT 98
--- NOTE | 2022-07-06 12:54 | DCINST_ITS ---
Discharge Instructions Follow Up Care Test Results: Test results from this visit will be discussed in further detail at your follow- up appointment, if applicable. Discharge Plan Admission Admit Date/Time: 07/04/22 03:22 Attending Provider: Renetta Thornton Primary Care Provider: Care Physician,No Primary Consulting Providers: Nba Abernathy Discharge Orders/Prescriptions Prescriptions: No Action lamotrigine 150 mg Tablet 50 mg PO DAILY medroxyprogesterone [Depo-Provera] 150 mg/mL Suspension 300 mg IM QMONTH Label Comments: every three months multivitamin Tablet 1 tab PO DAILY Qty: 30 0RF quetiapine 100 mg tablet 100 mg PO QHS gabapentin 300 mg capsule 600 mg PO BID Referrals / Follow Up: [facility] Doctor,Out of [Non-Staff] - Care Physician,No Primary [Primary Care Provider] - Disposition Discharge Orders: Discharge Patient (Routine); Ordered 07/06/22 Ordered By: Dr. Renetta Thornton
[2022-07-06] MEDS: Methocarbamol 750 MG Tablet 1500 MG PO (14:38)
[2022-07-06] MEDS: Dicyclomine 10 MG Capsule 20 MG PO (14:39)
[2022-07-06] MEDS: Gabapentin 300 MG Capsule PO (14:39)
--- NOTE | 2022-07-06 15:04 | NURSING ---
Gave report to Fabian Brown RN on PCU
--- NOTE | 2022-07-06 15:37 | PCM.PN.HOSP ---
Subjective Subjective Follow-up on acute alcohol/opiate withdrawal: Patient was seen and examined. No acute events overnight. No acute events. Objective Data Objective Data Vital Signs: Vital Signs Temp Pulse Resp BP Pulse Ox O2 Del Method 97.8 F 89 16 122/74 H 98 Room Air 07/06/22 12:40 07/06/22 12:40 07/06/22 12:40 07/06/22 12:40 07/06/22 12:40 07/06/22 12:40 Oxygen Delivery Method Room Air Weight: 73.8 kg Body Mass Index (BMI) 27.1 Intake & Output: Intake and Output for Last 24 Hours 07/04/22 07/05/22 07/06/22 23:59 23:59 23:59 Intake Total 480 / 480 480 / 480 Balance 480 / 480 480 / 480 Lab / Micro Data Result Diagrams: 07/04/22 03:47 07/04/22 03:47 Physical Exam Narrative Physical exam: General: Alert, Oriented x3, Cooperative HEENT: Atraumatic Oral: Moist Mucosa Neck: Supple Lungs: Clear to auscultation Cardiovascular: HS I+II, regular, no murmurs Abdomen: Bowel Sounds Present, Soft, Non Tender Extremities: No edema Skin: No rashes, No breakdown Neurological: Grossly intact Psych/Mental Status: Appropriate Assessment & Plan Assessment/Plan (1) Desire for detoxification: (2) Opioid abuse: (3) Alcohol abuse: (4) Benzodiazepine abuse: PLAN: Plan 1. Acute alcohol withdrawal, slowly improving Continue on phenobarb taper, folic acid, multivitamin, and thiamine 2. Acute opioid withdrawal, patient refused Subutex, continue to monitor 3. Nicotine dependence, continue on replacement 4. DVT PPx-low risk; early ambulation recommended
[2022-07-06 16:04] VITALS: BP 116/74; PULSE 75; RESP 16; TEMP 37; O2SAT 98
[2022-07-06] MEDS: Ondansetron 8 MG Tablet PO (16:13)
[2022-07-06] MEDS: hydrOXYzine PAM 25 MG Capsule 50 MG PO (16:13)
[2022-07-06 22:05] VITALS: BP 104/71; PULSE 78; RESP 16; TEMP 36.8; O2SAT 98
[2022-07-07] MEDS: Phenobarbital 32.4 MG Tablet PO ×3 (00:12→12:24)
[2022-07-07] MEDS: Gabapentin 300 MG Capsule PO ×2 (00:28→09:05)
[2022-07-07 04:05] VITALS: BP 109/60; PULSE 67; RESP 16; TEMP 37; O2SAT 100
[2022-07-07] MEDS: Methocarbamol 750 MG Tablet 1500 MG PO (05:45)
[2022-07-07 08:53] VITALS: BP 99/80; PULSE 65; RESP 16; TEMP 36.8; O2SAT 99
[2022-07-07] MEDS: Senna/Docusate Sodium 1 Tablet PO (09:05)
[2022-07-07] MEDS: Thiamine Hydrochloride 100 MG Tablet PO (09:05)
[2022-07-07] MEDS: Folic Acid 1 MG Tablet PO (09:05)
[2022-07-07] MEDS: Multivitamins,Therapeutic Tablet 1 TABLET PO (09:05)
[2022-07-07] MEDS: lamoTRIgine 150 MG Tablet 50 MG PO (09:06)
--- NOTE | 2022-07-07 13:02 | PCM.DC ---
Discharge Instructions Diet Discharge Diet: No restrictions Activity Discharge Activity: Return to Normal Activity Follow Up Care Test Results: Test results from this visit will be discussed in further detail at your follow-up appointment, if applicable. Discharge Plan Admission Admit Date/Time: 07/04/22 03:22 Primary Reason for Your Visit: Detox Attending Provider: Shalini Camarillo Primary Care Provider: Cleo Cooney,Carolyn Primary Consulting Providers: Nba Abernathy ; Renetta Thornton Instructions Patient Instructions: Addiction Recovery Counseling Additional Instructions / Restrictions: ?Please follow-up with the recovery services of your choice upon discharge ?Please continue your home medications -Please call your primary care provider's office upon discharge to schedule a hospital follow up within 1 week. -For any concerning signs or symptoms please call 911 or proceed to the nearest emergency department Discharge Orders/Prescriptions Prescriptions: Continued lamotrigine 150 mg Tablet 50 mg PO DAILY medroxyprogesterone [Depo-Provera] 150 mg/mL Suspension 300 mg IM QMONTH Label Comments: every three months multivitamin Tablet 1 tab PO DAILY Qty: 30 0RF quetiapine 100 mg tablet 100 mg PO QHS gabapentin 300 mg capsule 600 mg PO BID Referrals / Follow Up: Care Physician,No Primary [Primary Care Provider] - [facility] Doctor,Out of [Non-Staff] - Disposition Disposition (needs filled in before D/C Order can be placed): Home, Self Care
--- NOTE | 2022-07-07 13:05 | DS.PCM_ITS ---
Providers Date of Admission: 07/04/22 Date of Discharge: 07/07/22 Primary Care Physician: No Primary Care Phys Reason For Visit: DESIRE FOR DETOX Diagnosis Discharge Diagnosis (1) Desire for detoxification: Status: Acute (2) Opioid abuse: Status: Acute Code(s): F11.10 - Opioid abuse, uncomplicated (3) Alcohol abuse: Status: Acute Code(s): F10.10 - Alcohol abuse, uncomplicated (4) Benzodiazepine abuse: Status: Acute Code(s): F13.10 - Sedative, hypnotic or anxiolytic abuse, uncomplicated Medications at Discharge Home Medications lamotrigine 150 mg tablet 50 mg PO DAILY bipolar 03/11/21 medroxyprogesterone 150 mg/mL intramuscular suspension (Depo-Provera) 300 mg IM QMONTH control 03/11/21 multivitamin 1 tab PO DAILY #30 tabs 06/07/22 gabapentin 300 mg capsule 600 mg PO BID 07/04/22 quetiapine 100 mg tablet 100 mg PO QHS 07/04/22 Hospital Course Summary of Care Provided Minutes Spent on Discharge: 25 Hospital Course: 26-year-old female history of asthma, tobacco abuse, reported withdrawal seizures, polysubstance abuse, alcohol use disorder who presented to the emergency department 07/04/2022 for detoxification from fentanyl, Xanax, alcoh ol. She drank roughly 3-4 tall boys per day and split 1/5 of whiskey with her every day and been drinking since about 12. Also would start Xanax several times a day and used fentanyl. Was placed on a phenobarb taper and did well. Discharged home with and father in stable condition. On day of discharge she denied any physical complaints. Physical Exam Const alert and no apparent distress Constitutional Narrative: Oriented HEENT normocephalic and head/scalp atraumatic Eyes Eyes Narrative: EOM grossly intact, anicteric Neck supple Resp normal respiratory effort and clear to auscultation bilaterally Cardio regular rate and regular rhythm GI soft to palpation, non-tender and non-distended Extremity Extremity Narrative: No edema appreciated Neuro moves all extremities Neuro Narrative: No overt focal deficits appreciated Psych Psych Narrative: Cooperative Weight / BMI Weight Weight: 73.8 kg Body Mass Index (BMI) 27.1 ABG / Lab / Microbiology Data Result Diagrams: 07/04/22 03:47 07/04/22 03:47 D/C Instructions Discharge Diet: No restrictions Meaningful Use Info Meaningful Use Diagnoses (Choose all that apply): None applicable Discharge Plan Admission Admit Date/Time: 07/04/22 03:22 Primary Reason for Your Visit: Detox Attending Provider: Shalini Camarillo Primary Care Provider: Cleo Cooney,Carolyn Primary Consulting Providers: Nba Abernathy ; Renetta Thornton Instructions Patient Instructions: Addiction Recovery Counseling Additional Instructions / Restrictions: ?Please follow-up with the recovery services of your choice upon discharge ?Please continue your home medications -Please call your primary care provider's office upon discharge to schedule a hospital follow up within 1 week. -For any concerning signs or symptoms please call 911 or proceed to the nearest emergency department Discharge Orders/Prescriptions Prescriptions: Continued lamotrigine 150 mg Tablet 50 mg PO DAILY medroxyprogesterone [Depo-Provera] 150 mg/mL Suspension 300 mg IM QMONTH Label Comments: every three months multivitamin Tablet 1 tab PO DAILY Qty: 30 0RF quetiapine 100 mg tablet 100 mg PO QHS gabapentin 300 mg capsule 600 mg PO BID Referrals / Follow Up: Care Physician,No Primary [Primary Care Provider] - [facility] Doctor,Out of [Non-Staff] - Disposition Disposition (needs filled in before D/C Order can be placed): Home, Self Care Charges/Coding Visit Charges Inpatient E&M: 84522 [facility] Hosp L1
[2022-07-07 13:52] VITALS: BP 115/72; PULSE 76; RESP 20; TEMP 36.3; O2SAT 100
--- NOTE | 2022-07-07 13:59 | NURSING ---
VSS. assessment completed pt is alert and oriented at this time. IV d/c bleeding stopped 2x2 gauze and tape applied. discharge instructions provided pt denies any questions at this time. pt provided with belongs and dresses self in restroom, pt brushes teeth prior to d/c. pt is ambulatory to main entrance to meet family members. pt noted with all belongs to exit at 0204 pm.
== END 2022-07-07 14:00 | disposition home or self-care (01) | DRG 773 ==
LOC: ED 03:28 → PCU 03:48
PROVIDERS: Admitting Provider Hospitalist; Emergency Provider Emergency Medicine; Visit Provider Internal Medicine
DX: F11.23 Opioid dependence with withdrawal (principal); F10.239 Alcohol dependence with withdrawal, unspecified; F13.10 Sedative, hypnotic or anxiolytic abuse, uncomplicated; F17.210 Nicotine dependence, cigarettes, uncomplicated; F43.10 Post-traumatic stress disorder, unspecified; Y90.0 Blood alcohol level of less than 20 mg/100 ml
CPT/HCPCS: 80053; 80307; 81001; 82077; 84703; 85025; 99283; 99406; A4216